=== PATIENT | female | born 1935 | race Caucasian/White ===

== ENCOUNTER 2016-08-07 16:33 | Inpatient (IN) | payer MEDICARE, BC ==
[~2016-08-07] VITALS: Ht 162.6 cm; Wt 78.0 kg
[~2016-08-07 16:33] MED LIST: CALC500T42 PO; CRAN500C2 PO; OXYC1SOL5 PO; RIVA10 PO; VITA200017 PO; Z.0.CPM; ZINC100T2 PO
[2016-08-07 17:21] VITALS: BP 111/73; PULSE 132; RESP 18; TEMP 99.9; O2SAT 94
[2016-08-07] MEDS ORDERED: SODIUM CHLOR 0.9% 1000 ML INJ 1,000 ML IV ONE (17:28)
[2016-08-07] MEDS ORDERED: NAPR375T PO (17:29)
[2016-08-07 18:05] LABS: AUTOMATED NEUTROPHIL # 11.3 TH/MM3 (1.8-7.7); BASOPHIL # 0.1 TH/MM3 (0-0.2); BASOPHIL % 0.4 % (0.0-2.0); HEMATOCRIT 32.4 % (35.0-46.0); HEMO FLAGS DIFF FINAL; LYMPH % 5.3 % (9.0-44.0); LYMPHOCYTE # 0.7 TH/MM3 (1.0-4.8); MEAN CELL VOLUME 80.1 FL (80.0-100.0); MEAN CORPUSCULAR HEMOGLOBIN 26.9 PG (27.0-34.0); MEAN CORPUSCULAR HGB CONC 33.6 % (32.0-36.0); MONO % 12.7 % (0.0-8.0); NEUT % 81.6 % (16.0-70.0); PLATELET COUNT 206 TH/MM3 (150-450); RED BLOOD COUNT 4.04 MIL/MM3 (4.00-5.30); RED CELL DISTRIBUTION WIDTH 15.5 % (11.6-17.2); WHITE BLOOD COUNT 13.9 TH/MM3 (4.0-11.0)
[2016-08-07 18:08] LABS: BACTERIA, URINE OCC /hpf; BLOOD, URINE SMALL (NEG); GLUCOSE,URINE NEG (NEG); KETONE, URINE 10 mg/dL (NEG); MUCUS URINE FEW /lpf (OCC); NITRITE,URINE NEG (NEG); SQUAMOUS EPITHELIAL CELL URINE 2 /hpf (0-5); URINE COLOR YELLOW (YELLW/STRAW)
[2016-08-07 18:09] LABS: COMMENT (UR) CATH-CULTURE IND; CULTURE IF INDICATED CATH CULTURE IND
[2016-08-07] MEDS: AZTREONAM INJ 1,000 MG in SODIUM CHLORIDE 0.9% INJ 100 ML IV STA ×2 (18:23→22:18)
[2016-08-07] MEDS ORDERED: GENTAMICIN IV STA (18:23)
[2016-08-07] MEDS ORDERED: SODIUM CHLORIDE 0.9% IV STA (18:23)
[2016-08-07 18:24] VITALS: O2SAT 98
--- NOTE | 2016-08-07 18:25 | RADRPT ---
EXAM DATE/TIME: 08/07/2016 17:50 [facility] COMPARISON: No previous studies available for comparison. INDICATIONS : Abnormal heart rate, shortness of breath and congestion. MEDICAL HISTORY : Carcinoma, breast. SURGICAL HISTORY : Mastectomy, left. ENCOUNTER: Initial ACUITY: 4 - 6 days PAIN SCORE: 0/10 LOCATION: Bilateral chest FINDINGS: A single view of the chest demonstrates the lungs to be symmetrically aerated without evidence of mas s, infiltrate or effusion. The cardiomediastinal contours are unremarkable. Osseous structures are intact. CONCLUSION: No evidence of acute cardiopulmonary disease. Marcelo Jung MD on August 07, 2016 at 18:23 Board Certified Radiologist. This report was verified electronically.
[2016-08-07 18:29] LABS: ALT (GPT) 34 U/L (10-53); ANION GAP 8 MEQ/L (5-15); AST (GOT) 32 U/L (15-37); BICARBONATE 26.9 MEQ/L (21.0-32.0); BLOOD UREA NITROGEN 15 MG/DL (7-18); CHLORIDE 103 MEQ/L (98-107); GLOMERULAR FILTRATION RATE 76 ML/MIN (>89); POTASSIUM 3.3 MEQ/L (3.5-5.1); SODIUM (NA) 138 MEQ/L (136-145)
[2016-08-07 18:33] LABS: ALKALINE PHOSPHATASE 154 U/L (45-117); APTT (PATIENT) 30.5 SEC (24.3-30.1); PROTHROMBIN TIME - PATIENT 10.7 SEC (9.8-11.6); TOTAL BILIRUBIN ADULT 0.9 MG/DL (0.2-1.0)
[2016-08-07 18:41] LABS: CREATINE KINASE 50 U/L (26-192)
--- NOTE | 2016-08-07 19:01 | PD ---
HPI Chief Complaint: GI Complaint Time Seen by Provider: 17:29 Travel History International Travel<30 days: No Contact w/Intl Traveler<30days: No Traveled to known affect area: No History of Present Illness HPI 81-year-old female presents with chills, vomiting, abdominal pain that she presented to an urgent care with. There her chest x-ray showed pneumomediastinum per documentation and she had sinus tachycardia in the 120s. She presents by ambulance from the urgent care. She states she has been having these symptoms over the past couple of days. She denies other concurrent complaints other than nasal congestion. She denies specific sick contacts. She states she feels worse when she moves around. Her is at bedside and help supplement history. She denies other modifying factors. PFSH Past Medical History Anxiety: No Depression: No Cancer: Yes (LEFT BREAST ) Cardiovascular Problems: No Endocrine: No Genitourinary: No Hepatitis: No Hiatal Hernia: No Immune Disorder: No Musculoskeletal: Yes (ARTHRITIS) Neurologic: No Psychiatric: No Reproductive: No Respiratory: No Tetanus Vaccination: > 5 Years Past Surgical History Abdominal Surgery: Yes (APPY) AICD: No Arteriovenous Shunt: No Body Medical Devices: TITANIUM MARY RIGHT LEG Endocrine Surgery: No Eye Surgery: Yes (WILEY CATARACT REMOVAL) Gynecologic Surgery: Yes (PARTIAL HYSTERECTOMY) Insulin Pump: No Joint Replacement: Yes (RGHT FEMOR TITANIUM) Oral Surgery: Yes (TONSILLECTOMY) Pacemaker: No Thoracic Surgery: Yes (LEFT MASTECTOMY) Social History Alcohol Use: No Tobacco Use: No Substance Use: No Allergies-Medications (Allergen,Severity, Reaction): Coded Allergies: Amoxicillin (Verified Allergy, Severe, Nausea/Vomiting, 08/07/16) Reported Meds & Prescriptions Reported Meds & Active Scripts Active Reported Naproxen 375 Mg Tab 375 Mg PO BID PRN Review of Systems Except as stated in HPI: all other systems reviewed are Neg Physical Exam Narrative GENERAL: Well-nourished, well-developed patient. SKIN: Warm and dry. HEAD: Normocephalic and atraumatic. EYES: No injection or drainage. ENT: No nasal drainage noted. NECK: Supple, trachea midline. CARDIOVASCULAR: Tachycardic rate and regular rhythm RESPIRATORY: Breath sounds equal bilaterally at apices. No accessory muscle use. GASTROINTESTINAL: Abdomen soft, diffusely tender, mild distention without rebound or guarding NEUROLOGICAL: Awake and alert. Moves all extremities. Normal speech. Data Data Last Documented VS Orders Electrocardiogram (08/07/16:28) Complete Blood Count With Diff (08/07/16:) Comprehensive Metabolic Panel (08/07/16) Prothrombin Time / Inr (Pt) (08/07/16) Act Partial Throm Time (Ptt) (08/07/16:) Lactic Acid Sepsis Protocol (08/07/16:) Magnesium (Mg) (08/07/16) Phosphorus (Po4) (08/07/16) Ckmb (Isoenzyme) Profile (08/07/16) Troponin I (08/07/16) Urinalysis - C+S If Indicated (08/07/16) Blood Culture (08/07/16) Chest, Single Ap (08/07/16:) Ecg Monitoring (08/07/16:) Iv Access Insert/Monitor (08/07/16:) Oximetry (08/07/16:) Sodium Chlor 0.9% 1000 Ml Inj (Ns 1000 M (08/07/16 17:28) Influenzae A/B Antigen (08/07/16 17:52) Ct Abd/Pel W Iv Contrast(Rout) (08/07/16 ) Ct Thorax/ Chest W Iv Contrast (08/07/16 17:56) Urine Culture (08/07/16 17:43) Aztreonam Inj (Azactam Inj) (08/07/16 18:23) Gentamicin Inj (Gentamicin Inj) (08/07/16 18:23) Electrocardiogram (08/07/16 ) Sodium Chlor 0.9% 1000 Ml Inj (Ns 1000 M (08/07/16 19:30) Iohexol 350 Inj (Omnipaque 350 Inj) (08/07/16 19:31) Diltiazem Inj (Cardizem Inj) (08/07/16 21:00) Acetaminophen (Tylenol) (08/07/16 21:15) Ondansetron Inj (Zofran Inj) (08/07/16 21:30) Acetaminophen Supp (Tylenol Supp) (08/07/16 21:30) Diltiazem Inj (Cardizem Inj) (08/07/16 21:45) Vital Signs (Adult) Q15MX4,Q4H (08/07/16 21:37) Fisher Scallop / Telemetry MO.Q8H (08/07/16 21:37) Cardiac Rhythm MO.Q8H (08/07/16 21:37) ^ Notify Dr: Other (08/07/16 21:37) Diltiazem Inj (Cardizem Inj) (08/07/16 21:45) Potassium Phosphate Inj (Potassium Phosp (08/08/16 00:15) Potassium Chlor 20 Meq Premix (Kcl 20 Me (08/08/16 00:15) Lactated Ringer's 1000 Ml Inj (Lr 1000 M (08/08/16 00:15) Admit Order (Ed Use Only) (08/08/16 00:13) Labs MDM Medical Decision Making Medical Screen Exam Complete: Yes Emergency Medical Condition: Yes Medical Record Reviewed: Yes (past history confirmed, urgent care note reviewed ) Interpretation(s) EKG #1 shows likely sinus tachycardia at 150 with underlying artifact without STEMI criteria so Will repeat EKG #2 after no medications were given shows NSR, no ST elevation or depression , and no arrhythmias. No significant T-wave inversions. CBC & BMP Diagram 08/07/16 17:48 Last 24 hours Impressions Chest X-Ray 08/07/16 1728 Signed Impressions: Service Date/Time: Sunday, August 07, 2016 17:50 - CONCLUSION: No evidence of acute cardiopulmonary disease. Marcelo Jung MD Differential Diagnosis Sepsis, SVT, a flutter with RVR, diverticulitis, UTI, appendicitis, barotrauma.... Narrative Course Will check blood work, urinalysis, chest x-ray, CT chest (report of pneumomediastinum by urgent care) and abdomen (check for source of sepsis and UTI possible stone versus pyelonephritis versus abscess) and dose of IV fluids and reevaluate Given penicillin allergy will dose with aztreonam and gentamicin to cover for urinary tract infection in setting of sepsis and continue ivf Critical Care Narrative Aggregate critical care time was 30 minutes. Time to perform other separately billable procedures was not included in the critical care time. My time did not include minutes spent treating any other patients simultaneously or on activities that did not directly contribute to the patient's treatment. The services I provided to this patient were to treat and/or prevent clinically significant deterioration that could result in: Septic shock I provided critical care services requiring my management, as noted below: Chart data review, documentation time, medication orders and management, vital sign assessments/reviewing monitor data, ordering and reviewing lab tests, ordering and interpreting/reviewing x-rays and diagnostic studies, care of the patient and discussion of the patient with the admitting physicians. Sepsis Criteria SIRS Criteria (2 or more): Heart rate over 90, WBC > 36972, < 4000 or > 10% bands Sepsis Criteria (SIRS+source): Infect source susp/known Physician Communication Physician Communication dr laughlin to follow cts and admit Diagnosis Primary Impression: Sepsis Qualified Code: A41.9 - Sepsis, due to unspecified organism Additional Impressions: Leukocytosis Qualified Code: D72.825 - Bandemia Narrow complex tachycardia Normocytic anemia Hypokalemia Admitting Information Admitting Physician Requests: Admit Scripts Ferrous Sulfate 325 Mg Ssn045 Mg PO BID #60 TAB Prov:Christian Tobin DO 08/13/16 Diltiazem CD 24 HR 240 Mg Pazeh768 Mg PO DAILY #30 CAP Ref 0 Prov:Christian Tobin DO 08/13/16 Ciprofloxacin (Cipro)500 Mg Avp241 Mg PO Q12HR #20 TAB Prov:Christian Tobin DO 08/13/[address] (Aspirin EC)81 Mg Tabdr81 Mg PO DAILY #30 TAB Ref 0 Prov:Christian Tobin DO 08/13/16 Oxygen tank 1 Ea Tank #2 Liter Jevon.canula Continuous Oxygen Concentrator Portable Gaseous 2 L/min via Nasal Cannula Continuous For 99 months Prov:Christian Tobin DO 08/13/16 Lisa Martinez MD Aug 07, 2016 19:01 Thromboplast Time Sodium Level 138 MEQ/L Potassium Level 3.3 MEQ/L Chloride Level 103 MEQ/L Carbon Dioxide Level 26.9 MEQ/L Anion Gap 8 MEQ/L Blood Urea Nitrogen 15 MG/DL Creatinine 0.74 MG/DL Estimat Glomerular Filtration 76 ML/MIN Rate Random Glucose 97 MG/DL Lactic Acid Level 1.2 mmol/L Calcium Level 8.5 MG/DL Phosphorus Level 2.0 MG/DL Magnesium Level 2.0 MG/DL Total Bilirubin 0.9 MG/DL Aspartate Amino Transf 32 U/L (AST/SGOT) Alanine Aminotransferase 34 U/L (ALT/SGPT) Alkaline Phosphatase 154 U/L Total Creatine Kinase 50 U/L Troponin I LESS THAN 0.02 NG/ML Total Protein 6.7 GM/DL Albumin 2.8 GM/DL MDM Medical Decision Making Medical Screen Exam Complete: Yes Emergency Medical Condition: Yes Medical Record Reviewed: Yes (past history confirmed, urgent care note reviewed ) Interpretation(s) EKG #1 shows likely sinus tachycardia at 150 with underlying artifact without STEMI criteria so Will repeat EKG #2 after no medications were given shows NSR, no ST elevation or depression , and no arrhythmias. No significant T-wave inversions. CBC & BMP Diagram 08/07/16 17:48 Last 24 hours Impressions Chest X-Ray 08/07/16 1728 Signed Impressions: Service Date/Time: Sunday, August 07, 2016 17:50 - CONCLUSION: No evidence of acute cardiopulmonary disease. Marcelo Jung MD Differential Diagnosis Sepsis, SVT, a flutter with RVR, diverticulitis, UTI, appendicitis, barotrauma.... Narrative Course Will check blood work, urinalysis, chest x-ray, CT chest and abdomen and dose of IV fluids and reevaluate Given penicillin allergy will dose with history and a.m. and gentamicin to cover for urinary tract infection in setting of sepsis Sepsis Criteria SIRS Criteria (2 or more): Heart rate over 90, WBC > 22631, < 4000 or > 10% bands Sepsis Criteria (SIRS+source): Infect source susp/known Physician Communication Physician Communication dr laughlin to follow cts and admit Admitting Information Admitting Physician Requests: Admit Lisa Martinez MD Aug 07, 2016 19:01
[2016-08-07] MEDS ORDERED: SODIUM CHLOR 0.9% 1000 ML INJ 1,000 ML IV SCH (19:30)
[2016-08-07] MEDS ORDERED: IOHEXOL 350 MG/ML 10 ML VIAL (for RAD DIAG) IV ONE (19:31)
--- NOTE | 2016-08-07 19:55 | RADRPT ---
EXAM DATE/TIME: 08/07/2016 19:28 [facility] COMPARISON: No previous studies available for comparison. INDICATIONS : Weakness and dark urine for three days. IV CONTRAST: 100 cc Omnipaque 350 (iohexol) IV ; Cumulative dose for multiple exams. ORAL CONTRAST: No oral contrast ingested. RADIATION DOSE: 15.13 CTDIvol (mGy) ; Combined studies - Thorax/Abdomen/Pelvis MEDICAL HISTORY : Carcinoma, breast. SURGICAL HISTORY : Mastectomy, left. Appendectomy.Hysterectomy.hip ORIF ENCOUNTER: Initial ACUITY: 3 days PAIN SCALE: 5/10 LOCATION: abdomen TECHNIQUE: Volumetric scanning of the abdomen and pelvis was performed. Using automated exposure control and ad justment of the mA and/or kV according to patient size, radiation dose was kept as low as reasonably achievable to obtain optimal diagnostic quality images. FINDINGS: LOWER LUNGS: The visualized lower lungs are clear. LIVER: Homogeneous density without lesion. There is no dilation of the biliary tree. 3 cm stone in the gall bladder. No inflammatory changes. No duct stone or ductal dilatation. SPLEEN: Normal size without lesion. PANCREAS: Within normal limits. KIDNEYS: Heterogeneous and decreased nephrogram on the right relative to the left. There is also mild right pe rinephric edema. I don't see hydronephrosis, hydroureter or definite stone. ADRENAL GLANDS: Within normal limits. VASCULAR: There is no aortic aneurysm. BOWEL/MESENTERY: The stomach, small bowel, and colon demonstrate no acute abnormality. There is no free intraperitone al air or fluid. ABDOMINAL WALL: Within normal limits. RETROPERITONEUM: There is no lymphadenopathy. BLADDER: No wall thickening or mass. REPRODUCTIVE: Previous hysterectomy. INGUINAL: There is no lymphadenopathy or hernia. MUSCULOSKELETAL: No acute bony abnormality demonstrated. CONCLUSION: 1. Heterogeneous nephrogram and perinephric edema on the right without stone or convincing evidence o f obstructive uropathy. Right pyelonephritis is suspected. 2. Large stone in an otherwise normal-appearing gallbladder. Mareclo Jung MD on August 07, 2016 at 19:50 Board Certified Radiologist. This report was verified electronically.
--- NOTE | 2016-08-07 20:01 | RADRPT ---
EXAM DATE/TIME: 08/07/2016 19:28 [facility] COMPARISON: No previous studies available for comparison. INDICATIONS : Weakness and dark urine for three days. IV CONTRAST: 100 cc Omnipaque 350 (iohexol) IV ; Cumulative dose for multiple exams. RADIATION DOSE: 15.31 CTDIvol (mGy) ; Combined studies - Thorax/Abdomen/Pelvis MEDICAL HISTORY : Carcinoma, breast. SURGICAL HISTORY : Mastectomy, left. Appendectomy.Hysterectomy.Hip ORIF. ENCOUNTER: Initial ACUITY: 3 days PAIN SCALE: 4/10 LOCATION: chest TECHNIQUE: Volumetric scanning of the chest was performed. Using automated exposure control and adjustment of t he mA and/or kV according to patient size, radiation dose was kept as low as reasonably achievable to obtain optimal diagnostic quality images. FINDINGS: No infiltrate, effusion or pneumothorax. Heart size normal. Coronary artery calcification, most consp icuous at the left anterior descending. A 12 mm AP window mediastinal lymph node is seen. CONCLUSION: No acute process. Marcelo Jung MD on August 07, 2016 at 19:57 Board Certified Radiologist. This report was verified electronically.
[2016-08-07 20:55] VITALS: PULSE 185; RESP 24; O2SAT 96
[2016-08-07] MEDS ORDERED: DILTIAZEM HCL 25 MG/5 ML VIAL IV ONE ×2 (21:00→21:45)
[2016-08-07 21:05] VITALS: BP 155/90; PULSE 120; RESP 24; TEMP 102.1; O2SAT 100
[2016-08-07] MEDS ORDERED: ACETAMINOPHEN 500 MG CPLT PO ONE (21:15)
[2016-08-07] MEDS ORDERED: ACETAMINOPHEN 650 MG SUPP RECTAL ONE (21:30)
[2016-08-07] MEDS ORDERED: ONDANSETRON HCL 4 MG/2 ML VIAL IV ONE (21:30)
[2016-08-07] MEDS ORDERED: DILTIAZEM INJ 125 MG in SODIUM CHLORIDE 0.9% INJ 100 ML IV SCH (21:45)
[2016-08-07 22:02] VITALS: BP 133/60; PULSE 138; RESP 26; O2SAT 99
[2016-08-07 23:00] VITALS: BP 96/50; PULSE 124; RESP 22; O2SAT 94
[2016-08-08] VITALS (15 sets, daily range): BP systolic 80–158; BP diastolic 47–80; PULSE 70–106; RESP 18–30; TEMP 98.4–100.3; O2SAT 94–99
[2016-08-08] MEDS ORDERED: POTASSIUM PHOSPHATE INJ 15 MMOL in SODIUM CHLORIDE 0.9% INJ 150 ML IV ONE (00:15)
[2016-08-08] MEDS: POTASSIUM CHLOR 20 MEQ PREMIX 100 ML IV SCH ×2 (00:28→04:06)
[2016-08-08] MEDS: LACTATED RINGER'S 1000 ML INJ 1,000 ML IV SCH ×3 (00:28→16:43)
--- NOTE | 2016-08-08 00:47 | PD ---
Data Data Last Documented VS Vital Signs Date Time Temp Pulse Resp B/P Pulse Ox O2 Delivery O2 Flow Rate FiO2 08/07/16 22:02 138 26 133/60 99 Nasal Cannula 3 08/07/16 21:05 102.1 Orders Electrocardiogram (08/07/16:28) Complete Blood Count With Diff (08/07/16:28) Comprehensive Metabolic Panel (08/07/16:) Prothrombin Time / Inr (Pt) (08/07/16:28) Act Partial Throm Time (Ptt) (08/07/16:28) Lactic Acid Sepsis Protocol (08/07/16:) Magnesium (Mg) (08/07/16:) Phosphorus (Po4) (08/07/16:) Ckmb (Isoenzyme) Profile (08/07/16:) Troponin I (08/07/16) Urinalysis - C+S If Indicated (08/07/16:) Blood Culture (08/07/16:28) Chest, Single Ap (08/07/16:28) Ecg Monitoring (08/07/16:28) Iv Access Insert/Monitor (08/07/16:) Oximetry (08/07/16:28) Sodium Chlor 0.9% 1000 Ml Inj (Ns 1000 M (08/07/16 17:28) Influenzae A/B Antigen (08/07/16 17:52) Ct Abd/Pel W Iv Contrast(Rout) (08/07/16 ) Ct Thorax/ Chest W Iv Contrast (08/07/16 17:56) Urine Culture (08/07/16 17:43) Aztreonam Inj (Azactam Inj) (08/07/16 18:23) Gentamicin Inj (Gentamicin Inj) (08/07/16 18:23) Electrocardiogram (08/07/16 ) Sodium Chlor 0.9% 1000 Ml Inj (Ns 1000 M (08/07/16 19:30) Iohexol 350 Inj (Omnipaque 350 Inj) (08/07/16 19:31) Diltiazem Inj (Cardizem Inj) (08/07/16 21:00) Acetaminophen (Tylenol) (08/07/16 21:15) Ondansetron Inj (Zofran Inj) (08/07/16 21:30) Acetaminophen Supp (Tylenol Supp) (08/07/16 21:30) Diltiazem Inj (Cardizem Inj) (08/07/16 21:45) Vital Signs (Adult) Q15MX4,Q4H (08/07/16 21:37) Airborne Operations Superintendent / Telemetry MO.Q8H (08/07/16 21:37) Cardiac Rhythm MO.Q8H (08/07/16 21:37) ^ Notify Dr: Other (08/07/16 21:37) Diltiazem Inj (Cardizem Inj) (08/07/16 21:45) Potassium Phosphate Inj (Potassium Phosp (08/08/16 00:15) Potassium Chlor 20 Meq Premix (Kcl 20 Me (08/08/16 00:15) Lactated Ringer's 1000 Ml Inj (Lr 1000 M (08/08/16 00:15) Admit Order (Ed Use Only) (08/08/16 00:13) Labs Laboratory Tests Test 08/07/16 08/07/16 17:43 17:48 Urine Color YELLOW Urine Turbidity HAZY Urine pH 6.0 Urine Specific Tyler 1.013 Urine Protein 100 mg/dL Urine Glucose (UA) NEG mg/dL Urine Ketones 10 mg/dL Urine Occult Blood SMALL Urine Nitrite NEG Urine Bilirubin NEG Urine Urobilinogen LESS THAN 2.0 MG/DL Urine Leukocyte Esterase LARGE Urine RBC 8 /hpf Urine WBC 97 /hpf Urine WBC Clumps FEW Urine Squamous Epithelial 2 /hpf Cells Urine Bacteria OCC /hpf Urine Mucus FEW /lpf Microscopic Urinalysis Comment CATH-CULTURE IND White Blood Count 13.9 TH/MM3 Red Blood Count 4.04 MIL/MM3 Hemoglobin 10.9 GM/DL Hematocrit 32.4 % Mean Corpuscular Volume 80.1 FL Mean Corpuscular Hemoglobin 26.9 PG Mean Corpuscular Hemoglobin 33.6 % Concent Red Cell Distribution Width 15.5 % Platelet Count 206 TH/MM3 Mean Platelet Volume 8.6 FL Neutrophils (%) (Auto) 81.6 % Lymphocytes (%) (Auto) 5.3 % Monocytes (%) (Auto) 12.7 % Eosinophils (%) (Auto) 0.0 % Basophils (%) (Auto) 0.4 % Neutrophils # (Auto) 11.3 TH/MM3 Lymphocytes # (Auto) 0.7 TH/MM3 Monocytes # (Auto) 1.8 TH/MM3 Eosinophils # (Auto) 0.0 TH/MM3 Basophils # (Auto) 0.1 TH/MM3 CBC Comment DIFF FINAL Differential Comment Prothrombin Time 10.7 SEC Prothromb Time International 1.0 RATIO Ratio Activated Partial 30.5 SEC Thromboplast Time Sodium Level 138 MEQ/L Potassium Level 3.3 MEQ/L Chloride Level 103 MEQ/L Carbon Dioxide Level 26.9 MEQ/L Anion Gap 8 MEQ/L Blood Urea Nitrogen 15 MG/DL Creatinine 0.74 MG/DL Estimat Glomerular Filtration 76 ML/MIN Rate Random Glucose 97 MG/DL Lactic Acid Level 1.2 mmol/L Calcium Level 8.5 MG/DL Phosphorus Level 2.0 MG/DL Magnesium Level 2.0 MG/DL Total Bilirubin 0.9 MG/DL Aspartate Amino Transf 32 U/L (AST/SGOT) Alanine Aminotransferase 34 U/L (ALT/SGPT) Alkaline Phosphatase 154 U/L Total Creatine Kinase 50 U/L Troponin I LESS THAN 0.02 NG/ML Total Protein 6.7 GM/DL Albumin 2.8 GM/DL [facility] Supervised Visit with KAROLYN: No Narrative Course I took over care of this patient from Dr. Martinez. The patient presents today with pyelonephritis than a septic. She also is in a narrow complex tachycardia. She was given 15 mg of diltiazem and then a 20 mg bolus. She was started on a drip. She was also given 2 L of IV hydration and broad-spectrum antibiotics. Given her blood pressure is on the low side and her heart rate continues to be in the 120 to 130 range patient was admitted to the intensive care unit for close monitoring. Critical Care Narrative Aggregate critical care time was 40 minutes. Time to perform other separately billable procedures was not included in the critical care time. My time did not include minutes spent treating any other patients simultaneously or on activities that did not directly contribute to the patient's treatment. The services I provided to this patient were to treat and/or prevent clinically significant deterioration that could result in: Disability, I provided critical care services requiring my management, as noted below: Chart data review, documentation time, medication orders and management, vital sign assessments/reviewing monitor data, ordering and reviewing lab tests, ordering and interpreting/reviewing x-rays and diagnostic studies, care of the patient and discussion of the patient with the admitting physicians. Diagnosis Primary Impression: Pyelonephritis Additional Impression: Narrow complex tachycardia Admitting Information Admitting Physician Requests: Admit Ava Kirkpatrick MD Aug 08, 2016 00:47
--- NOTE | 2016-08-08 05:41 | HHI.HP ---
[facility] Service Critical Care Medicine Primary Care Physician Ashley Burrell M.D. Admission Diagnosis pyelonephritis, svt Diagnosis: (1) Osteoarthritis of right knee Diagnosis: Principal (2) Pyelonephritis Diagnosis: Principal (3) Narrow complex tachycardia Diagnosis: Principal (4) Emphysematous pyelonephritis of right kidney Diagnosis: Principal (5) Hypokalemia Diagnosis: Principal (6) Hypophosphatemia Diagnosis: Principal (7) Leukocytosis Diagnosis: Principal (8) Normocytic anemia Diagnosis: Principal (9) SIRS (systemic inflammatory response syndrome) Diagnosis: Principal Chief Complaint: Nausea and vomiting Travel History International Travel<30 Days: No Contact w/Intl Traveler <30 Da: No Traveled to Known Affected Are: No Sepsis Criteria SIRS Criteria (2 or more): Heart rate over 90, RR > 20 or PaCO2 < 32, WBC > 41560, < 4000 or > 10% bands Sepsis Criteria (SIRS+source): Infect source susp/known Criteria Outcome: Meets SIRS criteria History of Present Illness 81-year-old female. Date of admission 08/07/2016. Past medical includes osteoarthritis. She recently has had surgery on right leg has had frequent urinary tract infections interim. She states she took Monistat" for this". She presents to [facility] with chills, vomiting, abdominal pain after being seen in urgent care. His last several days prior to admission.. At that facility. obstensively her chest x-ray showed pneumomediastinum per documentation and she had sinus tachycardia in the 120s. At this facility, CT chest and chest x-ray did not show pneumomediastinum here. She received 2 L normal saline for hypotension and urosepsis or urinary tract infections or pyelonephritis and received 35 mg total Cardizem's and started on a Cardizem drip at 2.5 mg an hour. And received potassium phosphorus supplementation.. Cisterna foot 5 AM. She is currently seen hemodynamically stable in ED. lactate was 1.2. CT abdomen pelvis revealed right pyelonephritis and cholelithiasis. Review of Systems Constitutional: COMPLAINS OF: Fatigue, Fever, DENIES: Weight gain, Weight loss Endocrine: DENIES: Polydipsia, Polyuria Eyes: DENIES: Blurred vision, Double Vision Ears, nose, mouth, throat: DENIES: Hearing loss Respiratory: DENIES: Cough Cardiovascular: DENIES: Chest pain, Orthopnea, Claudication Gastrointestinal: COMPLAINS OF: Abdominal pain, Nausea, Vomiting, DENIES: Black stools Genitourinary: COMPLAINS OF: Urinary frequency, Urinary incontinence, Urgency, DENIES: Hematuria Musculoskeletal: COMPLAINS OF: Joint pain Integumentary: DENIES: Rash Hematologic/lymphatic: DENIES: Lymphadenopathy Neurologic: DENIES: Abnormal gait Psychiatric: COMPLAINS OF: Anxiety, DENIES: Confusion Past Family Social History Allergies: Coded Allergies: Amoxicillin (Verified Allergy, Severe, Nausea/Vomiting, 08/07/16) Past Medical History Osteoarthritis Past Surgical History Bilateral cataract T&A Left meniscectomy Hysterectomy Right femur Reported Medications Naprosyn as needed Active Ordered Medications Reviewed in EMR Family History Mother and father is noncontributory Social History No severe tobacco alcohol or IV drug use Physical Exam Vital Signs Vital Signs Date Time Temp Pulse Resp B/P Pulse Ox O2 Delivery O2 Flow Rate FiO2 08/08/16 05:33 70 23 95/50 98 Nasal Cannula 2 08/08/16 04:00 72 18 80/47 97 Nasal Cannula 2 08/08/16 03:00 74 19 85/52 94 Nasal Cannula 2 08/08/16 02:49 77 22 86/51 94 Nasal Cannula 3 08/08/16 00:44 100.3 08/08/16 00:29 90 20 90/53 94 Nasal Cannula 2 08/07/16 23:00 124 22 96/50 94 08/07/16 22:02 138 26 133/60 99 Nasal Cannula 3 08/07/16 21:05 102.1 120 24 155/90 100 Nasal Cannula 2 08/07/16 20:55 185 24 96 Nasal Cannula 2 08/07/16 18:24 98 08/07/16 17:21 99.9 132 18 111/73 94 Physical Exam GENERAL: 81-year-old female, resting in bed in no acute distress SKIN: Warm and dry. No rash. Well-perfused HEAD: Atraumatic. Normocephalic. EYES: Pupils equal and round. No scleral icterus. No injection or drainage. ENT: No nasal bleeding or discharge. Mucous membranes pink and moist. NECK: Trachea midline. No JVD. CARDIOVASCULAR: Regular rate and rhythm. S1, S2. No S4. Without murmur RESPIRATORY: No accessory muscle use. Clear to auscultation. Breath sounds equal bilaterally. GASTROINTESTINAL: Abdomen soft, tender to deep palpation right flank., nondistended. Hypoactive bowel sounds appreciated MUSCULOSKELETAL: Extremities without significant peripheral edema. No obvious deformities. NEUROLOGICAL: Awake and alert. No obvious cranial nerve deficits. Motor grossly within normal limits. Five out of 5 muscle strength in the arms and legs. Normal speech. PSYCHIATRIC: Appropriate mood and affect; insight and judgment normal. Laboratory Laboratory Tests Test 08/07/16 08/07/16 17:43 17:48 Urine Color YELLOW Urine Turbidity HAZY Urine pH 6.0 Urine Specific [place] 1.013 Urine Protein 100 Urine Glucose (UA) NEG Urine Ketones 10 Urine Occult Blood SMALL Urine Nitrite NEG Urine Bilirubin NEG Urine Urobilinogen LESS THAN 2.0 Urine Leukocyte Esterase LARGE Urine RBC 8 Urine WBC 97 Urine WBC Clumps FEW Urine Squamous Epithelial 2 Cells Urine Bacteria OCC Urine Mucus FEW Microscopic Urinalysis Comment CATH-CULTURE IND White Blood Count 13.9 Red Blood Count 4.04 Hemoglobin 10.9 Hematocrit 32.4 Mean Corpuscular Volume 80.1 Mean Corpuscular Hemoglobin 26.9 Mean Corpuscular Hemoglobin 33.6 Concent Red Cell Distribution Width 15.5 Platelet Count 206 Mean Platelet Volume 8.6 Neutrophils (%) (Auto) 81.6 Lymphocytes (%) (Auto) 5.3 Monocytes (%) (Auto) 12.7 Eosinophils (%) (Auto) 0.0 Basophils (%) (Auto) 0.4 Neutrophils # (Auto) 11.3 Lymphocytes # (Auto) 0.7 Monocytes # (Auto) 1.8 Eosinophils # (Auto) 0.0 Basophils # (Auto) 0.1 CBC Comment DIFF FINAL Differential Comment Prothrombin Time 10.7 Prothromb Time International 1.0 Ratio Activated Partial 30.5 Thromboplast Time Sodium Level 138 Potassium Level 3.3 Chloride Level 103 Carbon Dioxide Level 26.9 Anion Gap 8 Blood Urea Nitrogen 15 Creatinine 0.74 Estimat Glomerular Filtration 76 Rate Random Glucose 97 Lactic Acid Level 1.2 Calcium Level 8.5 Phosphorus Level 2.0 Magnesium Level 2.0 Total Bilirubin 0.9 Aspartate Amino Transf 32 (AST/SGOT) Alanine Aminotransferase 34 (ALT/SGPT) Alkaline Phosphatase 154 Total Creatine Kinase 50 Troponin I LESS THAN 0.02 Total Protein 6.7 Albumin 2.8 Date/Time Procedure Status Source Growth 08/07/16 18:05 Influenza Types A,B Antigen ([place]) - Final Complete Nasal Aspirate NEGATIVE FOR FLU A AND B ANTIGEN.... 08/07/16 17:48 Aerobic Blood Culture Received Blood Peripheral Pending 08/07/16 17:48 Anaerobic Blood Culture Received Blood Peripheral Pending 08/07/16 17:43 Urine Culture Received Urine Clean Catch Pending Result Diagram: 08/07/16 1748 08/07/16 1748 Imaging Last Impressions Chest CT 08/07/16 1756 Signed Impressions: Service Date/Time: Sunday, August 07, 2016 19:28 - CONCLUSION: No acute process. Marcelo Jung MD Chest X-Ray 08/07/16 1728 Signed Impressions: Service Date/Time: Sunday, August 07, 2016 17:50 - CONCLUSION: No evidence of acute cardiopulmonary disease. Marcelo Jung MD Abdomen/Pelvis CT 08/07/16 0000 Signed Impressions: Service Date/Time: Sunday, August 07, 2016 19:28 - CONCLUSION: 1. Heterogeneous nephrogram and perinephric edema on the right without stone or convincing evidence of obstructive uropathy. Right pyelonephritis is suspected. 2. Large stone in an otherwise normal-appearing gallbladder. Marcelo Jung MD Assessment and Plan Assessment and Plan Neuro/Psych: Acetaminophen for fever Dodson/morphine as needed for pain management CV: Narrow complex tachycardiac currently normal sinus rhythm Likely electrolyte induced. Currently off diltiazem drip started in ED. Keep potassium greater than 4, magnesium greater than 2. Troponin within normal limits. Follow up on TSH. 2-D echocardiogram ordered. Resp: There is a question of pneumomediastinum on chest x-ray from outside facility. CT chest revealed no such etiology. Nasal cannula to maintain saturations greater than equal to 92% Incentive spirometry while awake GI: Cholelithiasis Regular diet. Protonix for GI prophylaxis Colace/as needed Senokot for bowel regimen Noted gallbladder did reveal large stone. Asymptomatic on examination. Negative Hoyos sign. : Right pyelonephritis Started on aztreonam/gentamicin 1 dose in ED. Aggressive hydration. Endo: Sliding-scale insulin if needed to maintain euglycemia. Renal: Currently normal saline with 20 mEq KCl at 100 cc an hour Accurate I's and O's Heme: Leukocytosis Normocytic anemia Monitor CBC/CMP daily. ID: Pyelonephritis Patient is allergic to amoxicillin. Causes nausea. Aztreonam day #2. 1 dose gentamicin ED. Urine culture/blood cultures 22/03 pending Influenza negative FEN: Hypokalemia Hypophosphatemia Replace in ED. Recheck this AM. MSK: Osteoarthritis PT evaluate and treat Access - Utilize peripheral IV. Central line if indicated Prophylaxis - GI - Protonix - DVT - SCD/Lovenox Level III consult. Assign care to hospitalist in a.m. 08/09. Code Status Full code Discussed Condition With Dr. Kaya jiménez ED physician and patient. Care plan discussed all questions answered. Problem Qualifiers (1) Osteoarthritis of right knee: Qualified Code: M17.11 - Osteoarthritis of right knee, unspecified osteoarthritis type (2) Leukocytosis: Qualified Code: D72.825 - Bandemia Andre Leal MD Aug 08, 2016 05:41
[2016-08-08] MEDS ORDERED: CHLORHEXIDINE GLUCONATE 2 % 1 PACK (2 CLOTHS) TOP PRN (06:15)
[2016-08-08] MEDS ORDERED: MISCELLANEOUS NURSING INFORMATION XX SCH (06:15)
[2016-08-08] MEDS ORDERED: SODIUM CHLORIDE 0.9% FLUSH 5 ML FLUSH IV FLUSH PRN (06:15)
[2016-08-08] MEDS ORDERED: MORPHINE SULFATE 4 MG/ML INJ IV PRN (06:15)
[2016-08-08] MEDS ORDERED: Vancomycin Consult Pharmacy 1 EA XX SCH (06:15)
[2016-08-08] MEDS ORDERED: ACETAMINOPHEN/HYDROcodone 325 MG/5 MG TAB PO PRN (06:15)
[2016-08-08] MEDS ORDERED: SENNOSIDES 8.6 MG TAB PO PRN (06:15)
[2016-08-08] MEDS ORDERED: ONDANSETRON HCL 4 MG/2 ML VIAL IV PRN (06:15)
[2016-08-08 06:29] LABS: HEMATOCRIT 27.6 % (35.0-46.0); MEAN CELL VOLUME 79.9 FL (80.0-100.0); MEAN CORPUSCULAR HEMOGLOBIN 27.2 PG (27.0-34.0); MEAN CORPUSCULAR HGB CONC 34.1 % (32.0-36.0); PLATELET COUNT 181 TH/MM3 (150-450); RED BLOOD COUNT 3.46 MIL/MM3 (4.00-5.30); RED CELL DISTRIBUTION WIDTH 15.4 % (11.6-17.2); WHITE BLOOD COUNT 10.7 TH/MM3 (4.0-11.0)
[2016-08-08] MEDS ORDERED: SODIUM CHLOR 0.9% 1000 ML INJ 1,000 ML IV ONE (06:30)
[2016-08-08 06:46] LABS: HEMO FLAGS AUTO DIFF
[2016-08-08] MEDS ORDERED: VANCOMYCIN 1,500 MG/NS 500 ML IV ONE ×2 (07:00)
[2016-08-08 07:01] LABS: APTT (PATIENT) 34.5 SEC (24.3-30.1); PROTHROMBIN TIME - PATIENT 11.2 SEC (9.8-11.6)
[2016-08-08] MEDS: NS + KCL 20 MEQ INJ 1,000 ML IV SCH ×3 (07:08→20:07)
[2016-08-08 07:13] LABS: ALKALINE PHOSPHATASE 150 U/L (45-117); ALT (GPT) 24 U/L (10-53); ANION GAP 9 MEQ/L (5-15); AST (GOT) 21 U/L (15-37); BICARBONATE 24.5 MEQ/L (21.0-32.0); BLOOD UREA NITROGEN 14 MG/DL (7-18); CHLORIDE 111 MEQ/L (98-107); GLOMERULAR FILTRATION RATE 70 ML/MIN (>89); MAGNESIUM 1.9 MG/DL (1.5-2.5); SODIUM (NA) 144 MEQ/L (136-145); TOTAL BILIRUBIN ADULT 0.6 MG/DL (0.2-1.0)
[2016-08-08 07:18] LABS: BANDS 8 % (0-6); BASOPHILS 1 % (0-2); NEUTROPHIL # MANUAL DIFF 9.2 TH/MM3 (1.8-7.7); PLATELET ESTIMATE SMEAR NORMAL (NORMAL); PLATELET MORPHOLOGY NORMAL (NORMAL); POLYS (SEG NEUTROPHILS) 78 % (16-70); SCAN/DIFF FINAL DIFF MANUAL; WBC DIFF SAMPLE 100
[2016-08-08] MEDS: AZTREONAM INJ 1,000 MG in SODIUM CHLORIDE 0.9% INJ 100 ML IV SCH ×3 (07:32→20:07)
[2016-08-08] MEDS: DOCUSATE SODIUM 100 MG CAP PO SCH ×2 (08:44→20:07)
[2016-08-08] MEDS: PANTOPRAZOLE SOD 40 MG DELAYED RELEASE TAB PO SCH (08:44)
[2016-08-08] MEDS: ENOXAPARIN SODIUM 40 MG/0.4 ML SYRINGE SQ SCH (08:45)
[2016-08-08] MEDS: SODIUM CHLORIDE 0.9% FLUSH 5 ML FLUSH IV FLUSH SCH ×2 (09:00→20:07)
[2016-08-08] MEDS: MAGNESIUM SULFATE 1 GM PREMIX 100 ML IV SCH ×2 (14:15→15:39)
--- NOTE | 2016-08-08 14:27 | EKG ---
Date Performed: 08/07/2016 Time Performed: 18:34:16 PTAGE: 81 years EKG: Supraventricular tachycardia, rate around 150 with general regular rhythm and PACs. This do es not appear to be atrial fibrillation Slight right ventricular conduction disturbance Nonspecific S T change Compared to the previous tracing, SVT is new and the slight ST changes are new Clinical luz elation is recommended ABNORMAL ECG PREVIOUS TRACING : 03/25/2015 09.52 DOCTOR: Andrez Ramsey Interpretating Date/Time 08/08/2016 14:27:03
--- NOTE | 2016-08-08 14:28 | EKG ---
Date Performed: 08/07/2016 Time Performed: 18:49:24 PTAGE: 81 years EKG: Sinus rhythm Compared to prior tracing the SVT has resolved NORMAL ECG PREVIOUS TRACING : 08/07/2016 18.34 DOCTOR: Andrez Ramsey Interpretating Date/Time 08/08/2016 14:27:20
--- NOTE | 2016-08-08 14:28 | EKG ---
Date Performed: 08/07/2016 Time Performed: 22:48:59 PTAGE: 81 years EKG: SINUS TACHYCARDIA Compared to the PREVIOUS TRACING , heart rate is somewhat faster, otherwise no significant change PREVIO US TRACIN08/07/2016 18.49 DOCTOR: Andrez Ramsey Interpretating Date/Time 08/08/2016 14:27:51
[2016-08-08] MEDS: ACETAMINOPHEN 325 MG TAB PO PRN (21:40)
[2016-08-08 22:08] LABS: BICARBONATE 25.6 MEQ/L (21.0-32.0); POTASSIUM 3.9 MEQ/L (3.5-5.1)
[2016-08-09] VITALS (13 sets, daily range): BP systolic 104–135; BP diastolic 55–69; PULSE 80–120; RESP 17–29; TEMP 97.6–98.8; O2SAT 94–100
[2016-08-09 03:50] LABS: AUTOMATED NEUTROPHIL # 5.6 TH/MM3 (1.8-7.7); BASOPHIL # 0.1 TH/MM3 (0-0.2); BASOPHIL % 0.8 % (0.0-2.0); EOSINOPHIL # 0.1 TH/MM3 (0-0.4); EOSINOPHIL % 0.6 % (0.0-4.0); HEMATOCRIT 27.1 % (35.0-46.0); HEMO FLAGS DIFF FINAL; LYMPH % 12.1 % (9.0-44.0); MEAN CELL VOLUME 80.9 FL (80.0-100.0); MEAN CORPUSCULAR HEMOGLOBIN 27.2 PG (27.0-34.0); MEAN CORPUSCULAR HGB CONC 33.7 % (32.0-36.0); MONO % 17.4 % (0.0-8.0); NEUT % 69.1 % (16.0-70.0); PLATELET COUNT 179 TH/MM3 (150-450); RED BLOOD COUNT 3.36 MIL/MM3 (4.00-5.30); RED CELL DISTRIBUTION WIDTH 15.3 % (11.6-17.2); WHITE BLOOD COUNT 8.1 TH/MM3 (4.0-11.0)
[2016-08-09 03:54] LABS: APTT (PATIENT) 32.8 SEC (24.3-30.1); PROTHROMBIN TIME - PATIENT 10.8 SEC (9.8-11.6)
[2016-08-09] MEDS: CHLORHEXIDINE GLUCONATE 2 % 1 PACK (2 CLOTHS) TOP SCH (04:00)
[2016-08-09 04:01] LABS: ALT (GPT) 28 U/L (10-53); ANION GAP 7 MEQ/L (5-15); AST (GOT) 27 U/L (15-37); BICARBONATE 24.6 MEQ/L (21.0-32.0); BLOOD UREA NITROGEN 12 MG/DL (7-18); CHLORIDE 113 MEQ/L (98-107); GLOMERULAR FILTRATION RATE 91 ML/MIN (>89); MAGNESIUM 2.2 MG/DL (1.5-2.5); POTASSIUM 3.8 MEQ/L (3.5-5.1); SODIUM (NA) 145 MEQ/L (136-145)
[2016-08-09 04:03] LABS: ALKALINE PHOSPHATASE 175 U/L (45-117); TOTAL BILIRUBIN ADULT 0.4 MG/DL (0.2-1.0)
[2016-08-09] MEDS: AZTREONAM INJ 1,000 MG in SODIUM CHLORIDE 0.9% INJ 100 ML IV SCH (05:43)
[2016-08-09] MEDS: RESP: ALBUTEROL 2.5 MG/IPRATROPIUM 0.5 MG NEB (PRN) INH ×3 (06:05→20:29)
[2016-08-09] MEDS: ENOXAPARIN SODIUM 40 MG/0.4 ML SYRINGE SQ SCH (08:51)
[2016-08-09] MEDS: PANTOPRAZOLE SOD 40 MG DELAYED RELEASE TAB PO SCH (08:51)
[2016-08-09] MEDS: SODIUM CHLORIDE 0.9% FLUSH 5 ML FLUSH IV FLUSH SCH ×2 (08:52→19:54)
[2016-08-09] MEDS: DOCUSATE SODIUM 100 MG CAP PO SCH ×2 (08:52→19:54)
[2016-08-09] MEDS ORDERED: VANCOMYCIN 1,000 MG/NS 250 ML IV SCH ×2 (09:00)
--- NOTE | 2016-08-09 11:16 | HHI.FPPN ---
Subjective Remarks Patient has been seen and examined this morning. Her vitals are stable and she is afebrile. State she feels short of breath at times and feels her heart flutter. She has insurance but reports not going to the doctor, she states she goes to urgent cares. Reports multiple UTIs over the past few years. (Annalisa Nunez MD R3) Objective Vitals Vital Signs Date Time Temp Pulse Resp B/P Pulse Ox O2 Delivery O2 Flow Rate FiO2 08/09/16 07:00 Nasal Cannula 2.00 08/09/16 06:00 87 08/09/16 04:00 80 08/09/16 04:00 98.8 80 22 116/58 99 08/09/16 02:00 80 08/09/16 01:30 99 Nasal Cannula 3.00 08/09/16 00:00 87 08/09/16 00:00 98.5 87 19 104/59 94 08/08/16 22:00 101 08/08/16 20:00 98.4 104 30 123/59 99 08/08/16 20:00 94 Nasal Cannula 2.00 08/08/16 20:00 106 08/08/16 17:08 78 18 131/60 96 Nasal Cannula 2 08/08/16 15:05 85 18 122/58 97 Nasal Cannula 2 08/08/16 14:18 82 18 158/80 98 Room Air 08/08/16 12:30 72 18 104/65 97 Nasal Cannula 2 I/O 08/08/16 08/08/16 08/08/16 08/09/16 08/09/16 08/09/16 07:00 15:00 23:00 07:00 15:00 23:00 Intake Total 240 ml 465 ml 577 ml Output Total 600 ml 650 ml 500 ml Balance -360 ml -185 ml 77 ml Intake Oral 240 ml 50 ml 100 ml IV Total 415 ml 477 ml Output Urine Total 600 ml 650 ml 500 ml # Voids 1 # Bowel Movements 0 0 (Annalisa Nunez MD R3) Result Diagram: 08/09/1631308/09/16313 Imaging Last Impressions Chest CT 08/07/16 9665 Signed Impressions: Service Date/Time: Sunday, August 07, 2016 19:28 - CONCLUSION: No acute process. Marcelo Jung MD Chest X-Ray 08/07/16 1728 Signed Impressions: Service Date/Time: Sunday, August 07, 2016 17:50 - CONCLUSION: No evidence of acute cardiopulmonary disease. Marcelo Jung MD Abdomen/Pelvis CT 08/07/16 0000 Signed Impressions: Service Date/Time: Sunday, August 07, 2016 19:28 - CONCLUSION: 1. Heterogeneous nephrogram and perinephric edema on the right without stone or convincing evidence of obstructive uropathy. Right pyelonephritis is suspected. 2. Large stone in an otherwise normal-appearing gallbladder. Marcelo Jung MD Objective Remarks GENERAL: well appearing, nad SKIN: Warm and dry. HEAD: Normocephalic. EYES: No scleral icterus. No injection or drainage. NECK: Supple, trachea midline. No JVD or lymphadenopathy. CARDIOVASCULAR: Regular rate and rhythm without murmurs, gallops, or rubs. RESPIRATORY: Breath sounds equal bilaterally. No accessory muscle use. GASTROINTESTINAL: Abdomen soft, non-tender, nondistended. MUSCULOSKELETAL: No cyanosis, or edema. BACK: Nontender without obvious deformity. No CVA tenderness. (Annalisa Nunez MD R3) A/P Assessment and Plan This is an 81-year-old female who recently had surgery on her right leg and has since had a history of recurrent UTIs. She presented to [facility] on 02/2017 after being seen at an urgent care for chills, vomiting, and abdominal pain. At the urgent care the patient had a chest x-ray performed that was concerning for pneumomediastinum and was found to have a heart rate in the 120s. She was then sent to [facility] and was found to to be hemodynamically stable and was diagnosed with pyelonephritis/urosepsis. 1. Sepsis: Pyelonephritis with positive blood cultures (gram-negative juan), she was febrile and tachycardic on admission. Urine culture also showing gram- negative rods. Repeat blood cultures ordered. See abx below. 2. Pyelonephritis: See imaging above. Kidney function wnl. She is status post aztreonam and gentamicin in the ED then gentamycin d/c and vancomycin added. Will stop and place the patient on cefepime 08/09 for gram negative coverage. Urology consulted for her recurrent UTIs. 3. Cholelithiasis: Large stone showed in an overall normal appearing gallbladder noted on imaging. She has a symptomatic. May need lap mack as an outpatient. 4. Osteoporosis: Tylenol prn pain/fever. 5. Narrow complex tachycardia: Likely related to electrolyte abnormalities and dehydration. Heart rate on admission 130s. Placed on Cardizem drip, potassium replated. Heart rate now in the 80s. HR irregular on exam today, ECHO ordered. Tachycardia has resolved, if becomes an issue again during hospitalization may consider cardiology consultation. Fluids: NS @ 100 cc/hr Electrolytes: Currently within normal limits, potassium and mag both replaced Nutrition: Regular diet DVT prophylaxis: SCDs, Lovenox Discharge Planning D/C pending clinical improvement. PT recommends home with home health. (Annalisa Nunez MD R3) Problem List: (1) Osteoarthritis of right knee Status: Acute (2) Sepsis Status: Acute (3) Pyelonephritis Status: Acute (4) Narrow complex tachycardia Status: Acute (Annalisa Nunez MD R3) Problem Qualifiers (1) Osteoarthritis of right knee: Qualified Code: M17.11 - Osteoarthritis of right knee, unspecified osteoarthritis type Annalisa Nunez MD R3 Aug 09, 2016 11:15 Deloris Lazo MD Aug 09, 2016 15:47
[2016-08-09] MEDS ORDERED: SODIUM CHLOR 0.9% 1000 ML INJ 1,000 ML IV SCH ×2 (13:15→15:00)
[2016-08-09] MEDS: CEFEPIME INJ 2,000 MG in SODIUM CHLORIDE 0.9% INJ 100 ML IV SCH (14:45)
[2016-08-09] MEDS: NS + KCL 20 MEQ INJ 1,000 ML IV SCH (14:45)
[2016-08-09] MEDS ORDERED: DILTIAZEM HCL 25 MG/5 ML VIAL IVP ONE (16:45)
[2016-08-09] MEDS: DILTIAZEM INJ 125 MG in SODIUM CHLORIDE 0.9% INJ 100 ML IV SCH (16:57)
[2016-08-09] MEDS: ACETAMINOPHEN 325 MG TAB PO PRN (20:00)
[2016-08-10] VITALS (12 sets, daily range): BP systolic 88–133; BP diastolic 52–81; PULSE 84–112; RESP 18–29; TEMP 97.6–98.1; O2SAT 91–98
[2016-08-10] MEDS: CEFEPIME INJ 2,000 MG in SODIUM CHLORIDE 0.9% INJ 100 ML IV SCH ×2 (01:32→12:44)
[2016-08-10] MEDS: CHLORHEXIDINE GLUCONATE 2 % 1 PACK (2 CLOTHS) TOP SCH (01:32)
[2016-08-10] MEDS: RESP: ALBUTEROL 2.5 MG/IPRATROPIUM 0.5 MG NEB (PRN) INH ×3 (03:41→15:05)
[2016-08-10 04:41] LABS: AUTOMATED NEUTROPHIL # 3.3 TH/MM3 (1.8-7.7); BASOPHIL % 0.8 % (0.0-2.0); EOSINOPHIL # 0.1 TH/MM3 (0-0.4); EOSINOPHIL % 1.5 % (0.0-4.0); HEMATOCRIT 26.6 % (35.0-46.0); HEMO FLAGS DIFF FINAL; LYMPH % 18.5 % (9.0-44.0); MEAN CELL VOLUME 79.3 FL (80.0-100.0); MEAN CORPUSCULAR HEMOGLOBIN 27.6 PG (27.0-34.0); MEAN CORPUSCULAR HGB CONC 34.8 % (32.0-36.0); MONO % 16.1 % (0.0-8.0); NEUT % 63.1 % (16.0-70.0); PLATELET COUNT 200 TH/MM3 (150-450); RED BLOOD COUNT 3.35 MIL/MM3 (4.00-5.30); RED CELL DISTRIBUTION WIDTH 15.7 % (11.6-17.2); WHITE BLOOD COUNT 5.3 TH/MM3 (4.0-11.0)
[2016-08-10 05:10] LABS: BICARBONATE 25.1 MEQ/L (21.0-32.0); POTASSIUM 3.6 MEQ/L (3.5-5.1)
--- NOTE | 2016-08-10 07:57 | HHI.PR ---
Subjective Remarks This is a pleasant 81 y/o Female who was admitted 08/07/16 by security management specialist and was transferred to the Hospitalist group, she recently had Right leg Surgery, had recurrent UTIs, she took Monistat came to ER with chills, vomiting, abdominal pain after being seen in urgent care. His last several days prior to admission.. At that facility CXR showed Pneumomediastinum, seen with Tachycardia by Housekeeper Supervisor, CT scan taken here and CXR did not show Pneumomediastinum, received IV fluid resuscitation, was started on Cardizem, received Electrolyte replacement, CT Abdomen and Pelvis gave result of Right Pyelonephritis and Cholelithiasis. Diagnosis of Sepsis secondary to Pyelonephritis, positive Blood cultures with Gram negative Rods, was ordered to repeat cultures by Housekeeper Supervisor, she received Aztreonam and Gentamicin, now on Vancomycin and Cefepime started on 08/09, Urology consult placed yesterday and today asked for ID specialist consult. epoxy specialist consulted for new onset of Atrial Fibrillation and seen by Doctor Gregory Salmeron, with Diagnosis of New onset narrow complex tachycardia, possibly due to increased sympathetics due to her underlying Pathology, on Cardizem drip, Echocardiogram taken not yet read, CHADS VASc Score 3, the patient refused to be on blood thinners. Objective Vital Signs Date Time Temp Pulse Resp B/P Pulse Ox O2 Delivery O2 Flow Rate FiO2 08/10/16 06:00 91 08/10/16 04:00 112 08/10/16 04:00 97.8 112 28 110/61 96 08/10/16 02:00 86 08/10/16 00:00 91 08/10/16 00:00 98.0 91 23 88/52 94 08/09/16 23:00 95 08/09/16 22:00 104 08/09/16 20:33 97 Nasal Cannula 3.00 08/09/16 20:00 97.6 102 29 104/55 96 08/09/16 20:00 102 08/09/16 19:00 94 Nasal Cannula 4.00 08/09/16 16:00 97.9 120 24 135/69 95 08/09/16 12:00 97.6 94 24 134/61 98 08/09/16 09:48 99 Nasal Cannula 3.00 08/09/16 08:00 98.1 85 17 125/58 100 I/O 08/09/16 08/09/16 08/09/16 08/10/16 08/10/16 08/10/16 07:00 15:00 23:00 07:00 15:00 23:00 Intake Total 577 ml 1280 ml 663 ml 599 ml Output Total 500 ml 650 ml 700 ml 700 ml Balance 77 ml 630 ml -37 ml -101 ml Intake Oral 100 ml 600 ml 100 ml IV Total 477 ml 680 ml 563 ml 539 ml Other 60 ml Output Urine Total 500 ml 650 ml 700 ml 700 ml # Bowel Movements 0 0 0 0 Result Diagram: 08/10/16 0336 08/10/16 0336 Imaging Last Impressions Chest CT 08/07/16 1756 Signed Impressions: Service Date/Time: Sunday, August 07, 2016 19:28 - CONCLUSION: No acute process. Marcelo Jung MD Chest X-Ray 08/07/16 1728 Signed Impressions: Service Date/Time: Sunday, August 07, 2016 17:50 - CONCLUSION: No evidence of acute cardiopulmonary disease. Marcelo Jung MD Abdomen/Pelvis CT 08/07/16 0000 Signed Impressions: Service Date/Time: Sunday, August 07, 2016 19:28 - CONCLUSION: 1. Heterogeneous nephrogram and perinephric edema on the right without stone or convincing evidence of obstructive uropathy. Right pyelonephritis is suspected. 2. Large stone in an otherwise normal-appearing gallbladder. Marcelo Jung MD Procedures No procedures performed. Other Results Laboratory Tests Test 08/07/16 08/07/16 08/08/16 08/08/16 17:43 17:48 06:16 18:00 Urine Color YELLOW Urine Turbidity HAZY Urine pH 6.0 Urine Specific Sherrill 1.013 Urine Protein 100 mg/dL Urine Glucose (UA) NEG mg/dL Urine Ketones 10 mg/dL Urine Occult Blood SMALL Urine Nitrite NEG Urine Bilirubin NEG Urine Urobilinogen LESS THAN 2.0 MG/DL Urine Leukocyte Esterase LARGE Urine RBC 8 /hpf Urine WBC 97 /hpf Urine WBC Clumps FEW Urine Squamous Epithelial 2 /hpf Cells Urine Bacteria OCC /hpf Urine Mucus FEW /lpf Microscopic Urinalysis Comment CATH-CULTURE IND Total Creatine Kinase 50 U/L Differential Total Cells 100 Counted Neutrophils % (Manual) 78 % Band Neutrophils % 8 % Lymphocytes % 7 % Monocytes % 6 % Basophils % 1 % Neutrophils # (Manual) 9.2 TH/MM3 Platelet Estimate NORMAL Platelet Morphology Comment NORMAL Fibrinogen 571 mg/dL Troponin I 0.06 NG/ML Thyroid Stimulating Hormone 1.500 uIU/ML 3rd Gen Nasal Screen MRSA (PCR) NEGATIVE Test 08/09/16 08/10/16 03:14 03:36 Prothrombin Time 10.8 SEC Prothromb Time International 1.0 RATIO Ratio Activated Partial 32.8 SEC Thromboplast Time Lactic Acid Level 0.9 mmol/L Phosphorus Level 2.5 MG/DL Magnesium Level 2.2 MG/DL Total Bilirubin 0.4 MG/DL Aspartate Amino Transf 27 U/L (AST/SGOT) Alanine Aminotransferase 28 U/L (ALT/SGPT) Alkaline Phosphatase 175 U/L Total Protein 5.5 GM/DL Albumin 2.1 GM/DL White Blood Count 5.3 TH/MM3 Red Blood Count 3.35 MIL/MM3 Hemoglobin 9.2 GM/DL Hematocrit 26.6 % Mean Corpuscular Volume 79.3 FL Mean Corpuscular Hemoglobin 27.6 PG Mean Corpuscular Hemoglobin 34.8 % Concent Red Cell Distribution Width 15.7 % Platelet Count 200 TH/MM3 Mean Platelet Volume 8.3 FL Neutrophils (%) (Auto) 63.1 % Lymphocytes (%) (Auto) 18.5 % Monocytes (%) (Auto) 16.1 % Eosinophils (%) (Auto) 1.5 % Basophils (%) (Auto) 0.8 % Neutrophils # (Auto) 3.3 TH/MM3 Lymphocytes # (Auto) 1.0 TH/MM3 Monocytes # (Auto) 0.9 TH/MM3 Eosinophils # (Auto) 0.1 TH/MM3 Basophils # (Auto) 0.0 TH/MM3 CBC Comment DIFF FINAL Differential Comment Sodium Level 146 MEQ/L Potassium Level 3.6 MEQ/L Chloride Level 113 MEQ/L Carbon Dioxide Level 25.1 MEQ/L Anion Gap 8 MEQ/L Blood Urea Nitrogen 8 MG/DL Creatinine 0.53 MG/DL Estimat Glomerular Filtration 111 ML/MIN Rate Random Glucose 93 MG/DL Calcium Level 8.3 MG/DL Objective Remarks GENERAL: No acute distress. SKIN: Warm and dry. No rash. Well-perfused HEAD: Atraumatic. Normocephalic. EYES: Pupils equal and round. No scleral icterus. No injection or drainage. ENT: No nasal bleeding or discharge. Mucous membranes pink and moist. NECK: Trachea midline. No JVD. CARDIOVASCULAR: Regular rate and rhythm. S1, S2. No S4. Without murmur RESPIRATORY: No accessory muscle use. Clear to auscultation. Breath sounds equal bilaterally. GASTROINTESTINAL: Abdomen soft, tender to deep palpation right flank., nondistended. Hypoactive bowel sounds appreciated MUSCULOSKELETAL: Extremities without significant peripheral edema. No obvious deformities. NEUROLOGICAL: Awake and alert. No obvious cranial nerve deficits. Motor grossly within normal limits. Five out of 5 muscle strength in the arms and legs. Normal speech. PSYCHIATRIC: Appropriate mood and affect; insight and judgment normal. Medications and IVs Current Medications Medications (Trade) Dose Ordered Sig/Juma Route Start Time Stop Time Status Last Admin (NS + KCl 20 Meq Inj) 1,000 ml @ 60 mls/hr [id number] IV 08/08/16 06:10 08/09/16 14:45 (NS Flush) 2 ml UNSCH PRN IV FLUSH 08/08/16 06:15 (NS Flush) 2 ml BID IV FLUSH 08/08/16 09:00 08/09/16 19:54 (Tylenol) 650 mg Q6H PRN PO 08/08/16 06:15 08/09/16 20:00 ([place] 5-325 Mg) 1 tab Q4H PRN PO 08/08/16 06:15 (Morphine Inj) 2 mg Q2H PRN IV 08/08/16 06:15 (Protonix) 40 mg DAILY PO 08/08/16 09:00 08/09/16 08:51 (Zofran Inj) 4 mg Q6H PRN IV 08/08/16 06:15 (Colace) 100 mg BID PO 08/08/16 09:00 08/08/16 20:07 (Senokot) 17.2 mg Q12H PRN PO 08/08/16 06:15 (Lovenox Inj) 40 mg Q24H SQ 08/08/16 09:00 08/09/16 08:51 Miscellaneous Information 1 Q361D XX 08/08/16 06:15 (Chlorhexidine 2% Cloth) 3 pack Taper DAILY@04 TOP 08/09/16 04:00 08/05/17 03:59 08/10/16 01:32 Chlorhexidine Gluconate 3 pack 3 pack UNSCH PRN TOP 08/08/16 06:15 (Vancomycin Consult Pharmacy) 0 ml @ 0 mls/hr UNSCH XX 08/08/16 06:15 Miscellaneous Information SPECIFIC LAB TO BE ... ONCE ONCE XX 08/10/16 08:45 08/10/16 08:46 Cefepime HCl 2000 mg/Sodium Chloride 100 ml @ 200 mls/hr Q12H IV 08/09/16 14:00 08/10/16 01:32 (Cardizem Inj/NS Inj) 125 ml @ 0 mls/hr TITRATE IV 08/09/16 18:00 08/09/16 16:57 A/P Assessment and Plan 1. Narrow complex tachycardia improved to be in sinus rhythm,likely electrolyte induced Currently off diltiazem drip, tat was started in Emergency room, Troponin within normal limits TSH within normal limits, awaiting for Echocardiogram result, seen by epoxy specialist Doctor Gregory Salmeron emory attention about the use of sympathetics due to her underlying condition, CHADS VASc Score 3 but the patient do not want to start blood thinners. 2. Ruled out Pneumomediastinum, continue Oxygen to keep saturation over 92%, Bronchodilator Mucolytic and Incentive spirometry. 3. Cholelithiasis, Regular diet, Protonix for GI Prophylaxis, asymptomatic 4. Right Pyelonephritis on Aztreonam and Gentamicin given in ER, receiving Hydration, patient Allergic to Amoxicillin causes Nausea. blood culture positive for E Coli started on Cefepime ID consult placed for Gram Negative Bacteremia. 5. Electrolyte derangement replaced in intensive care unit 6. Leukocytosis 7. OA has PT and OT following Discussed with patient in her bedroom asking for labeling specialist consult I reviewed the CT scan and did not find Pathology to ask for specialist consult will follow Cardiology and ID recommendations. Prophylaxis - GI - Protonix - DVT - SCD/Lovenox Discharge Planning expected in one to two days. Boni Knight MD Aug 10, 2016 07:57 Urine culture/blood cultures 22/03 pending Influenza negative FEN: Hypokalemia Hypophosphatemia Replace in ED. Recheck this AM. MSK: Osteoarthritis PT evaluate and treat Access - Utilize peripheral IV. Central line if indicated Prophylaxis - GI - Protonix - DVT - SCD/Lovenox Level III consult. Assign care to hospitalist in a.m. 08/09. Code Status Full code Discussed Condition With Dr. Kaya jiménez ED physician and patient. Care plan discussed all questions answered. Problem Qualifiers (1) Osteoarthritis of right knee: Qualified Code: M17.11 - Osteoarthritis of right knee, unspecified osteoarthritis type (2) Leukocytosis: Qualified Code: D72.825 - Bandemia Andre Leal MD Aug 08, 2016 05:41 Boni Knight MD Aug 10, 2016 07:57
[2016-08-10] MEDS: DOCUSATE SODIUM 100 MG CAP PO SCH ×2 (08:33→19:52)
[2016-08-10] MEDS: PANTOPRAZOLE SOD 40 MG DELAYED RELEASE TAB PO SCH (08:33)
[2016-08-10] MEDS: ENOXAPARIN SODIUM 40 MG/0.4 ML SYRINGE SQ SCH (08:33)
[2016-08-10] MEDS: SODIUM CHLORIDE 0.9% FLUSH 5 ML FLUSH IV FLUSH SCH ×2 (08:33→19:52)
[2016-08-10] MEDS ORDERED: PHARMACY ORDERED LAB XX ONE (08:45)
[2016-08-10] MEDS: DILTIAZEM INJ 125 MG in SODIUM CHLORIDE 0.9% INJ 100 ML IV SCH (09:00)
--- NOTE | 2016-08-10 11:02 | MB ---
cc: GREGORY CANO DO DATE OF CONSULTATION: 08/10/2016 REASON FOR CONSULTATION Tachyarrhythmia. HISTORY OF PRESENT ILLNESS Marianne Hill is a pleasant 81-year-old female who originally presented to [facility] Emergency Room on August 07, 2016 due to chills, vomiting and abdominal pain. Before presenting to the emergency room she went to an urgent care. During there she had a chest x-ray which showed possible pneumomediastinum and she was in sinus tachycardia in the 120s. The Urgent Care sent her to the emergency room by ambulance. Per the patient she had been having these symptoms for the past couple of days. She denies any chest pain with these episodes. She is slightly more short of breath than usual but she feels similar to her baseline. On arrival she was found to have a narrow complex tachyarrhythmia and given Cardizem and then placed on a Cardizem drip. She was weaned off the Cardizem drip and was transferred from the ICU to the floor. She was found to go back into what appears to be atrial fibrillation with a rapid ventricular response. She was given Cardizem IV and restarted on a Cardizem drip. I was consulted for new onset atrial fibrillation. In discussing with her she states that she has no chest pain and has essentially baseline shortness of breath. She does have palpitations every now and then but they are short in duration. PAST MEDICAL HISTORY 1. Osteoarthritis. 2. Breast cancer. 3. Multiple UTIs. PAST SURGICAL HISTORY 1. Appendectomy. 2. Right leg surgery. 3. Bilateral cataract removal. 4. Partial hysterectomy. 5. Tonsillectomy. 6. Left mastectomy. ALLERGIES AMOXICILLIN. MEDICATIONS Naproxen 375 mg b.i.d. as needed. FAMILY HISTORY Two of her children have a history of SVT, but unsure what kind of SVT. SOCIAL HISTORY Denies tobacco, alcohol or IV drug abuse. REVIEW OF SYSTEMS 14-systems were reviewed in the history and physical with above pertinent positives and negatives; otherwise negative. PHYSICAL EXAMINATION VITAL SIGNS: Temperature 97.8, heart rate 91, blood pressure 110/61, respirations 22, pulse ox 96% on three liters. GENERAL: The patient appears well in no acute distress, awake, alert and oriented x3. HEENT: Extraocular muscles intact. Mucous membranes moist. NECK: Supple. No JVD at 45 degrees. No carotid bruits heard bilaterally. Carotid upstroke is brisk in nature. HEART: Regular rate and rhythm. Positive first and second heart sounds with a 1/6 crescendo-decrescendo murmur to the right sternal border. LUNGS: Decreased breath sounds at bilateral bases but no overt wheezes, rales or rhonchi. ABDOMEN: Soft, nontender, nondistended. No organomegaly noted. EXTREMITIES: No clubbing, cyanosis or edema. Femoral and distal pulses intact bilaterally. NEUROLOGIC: No focal deficits. SKIN: Warm, dry and intact. MUSCULOSKELETAL: Osteopathically no kyphoscoliosis, lordosis or paraspinal tender points. LABORATORY DATA Hemoglobin 9.2, hematocrit 26.6, platelets 200. Potassium 3.6, BUN 8, creatinine 0.53. Troponin 0.06. ELECTROCARDIOGRAM Electrocardiogram (August 07, 2016 at 1834): Narrow complex tachycardia at a rate of 147 beats per minute that does have some mild R-R variability, possibly atrial fibrillation versus atrial flutter. IMPRESSION 1. New onset narrow complex tachycardia, possibly due to increased sympathetics due to her underlying illness. 2. Right pyelonephritis. 3. Electrolyte derangement. 4. Leukocytosis. 5. Questionable pneumomediastinum on arrival. RECOMMENDATIONS 1. Marianne Hill appears to have a new onset narrow complex tachycardia. On EKG it is difficult to tell what the rhythm is, but she has had multiple telemetry strips showing R-R variability without P-waves consistent with atrial fibrillation with rapid ventricular response. After she converts out of this she does go to normal sinus rhythm. 2. She is currently on a Cardizem drip at 5 mg per hour. It does not seem that she was ever placed on Cardizem p.o. after being removed from the drip last time. Will plan on placing her on 30 mg q.6h., and this can be up titrated as needed. 3. Will check a 2-D echo to look at her overall left ventricular function, cardiac structure and possible valvulopathies. 4. I did speak extensively to her about consideration of anticoagulation as her CHADS-VASc score is 3. She states that she does not want to be on a blood thinner at all due to her fear of bleeding due to this. I did explain that this does put her at an extreme risk for stroke but she understands this and will continue on aspirin 81 mg. 5. I did speak to her about possible stress testing and she would like to wait until the outpatient setting to consider it. 6. Upon discharge will consider follow-up either here or with my partners in [place] as she does live in [place]. Thank you for allowing me to see Marianne Hill. If there are any questions, please do not hesitate to call. Gregory Cano DO VGP/BT /9:13 AM /9:41 AM
[2016-08-10] MEDS: ASPIRIN 81 MG CHEW TAB CHEW SCH (11:34)
[2016-08-10] MEDS: NS + KCL 20 MEQ INJ 1,000 ML IV SCH (12:44)
[2016-08-10] MEDS: DILTIAZEM HCL 30 MG TAB PO SCH ×3 (12:44→19:52)
[2016-08-10] MEDS ORDERED: FUROSEMIDE 20 MG/2 ML VIAL IV PUSH ONE (15:00)
[2016-08-10] MEDS: RESP: IPRATROPIUM 0.5 MG/2.5 ML NEB NEB SCH ×2 (16:00→21:59)
--- NOTE | 2016-08-10 17:40 | MB ---
cc: BRANDI HARRIS MD DATE OF CONSULTATION 08/10/2016 REASONS FOR CONSULTATION 1. Recurrent urinary tract infections. 2. Right pyelonephritis. HISTORY OF THE PRESENT ILLNESS The patient is an 81-year-old female who presented to the ER with nausea, vomiting, abdominal pain and chills that had been seen earlier in the Urgent Care. This has been going on for 3-4 days. At the urgent care she had a chest x-ray done which showed pneumomediastinum and she was in sinus tach at 120 and therefore, she was advised that she should go to the emergency room for further evaluation. In the ER she had a CT scan abdomen and pelvis which showed right perinephric stranding and perinephric edema consistent with right pyelonephritis. She was admitted for further management and started on IV antibiotics. Urology was consulted for this right pyelonephritis and recurrent urinary tract infections. Discussion with the patient, she has been having frequent urinary tract infections for the past 18 months. Her symptoms usually include dysuria and worsening frequency. She states this feels like she is burning all the time, regardless of urinating or not. She also frequently has chills with these infections. She has not seen a primary care physician but frequently goes to urgent care. She denies a history of kidney stones, however, her had stones in the past. She denies hematuria but she frequently leaks urine with coughing, sneezing, or standing up including today when she stood up and flooded the bed. Her incontinence is bothersome to her. After several days of antibiotics she does feel better. Her nausea and vomiting have resolved. Her blood cultures currently are positive and infectious disease is managing her IV antibiotics. She currently denies flank pain at this time as well. REVIEW OF SYSTEMS See history of present illness,12 point review of systems performed, otherwise negative. ALLERGIES INCLUDE AMOXICILLIN. PAST MEDICAL HISTORY 1. Osteoarthritis. 2. Recurrent urinary tract infections. PAST SURGICAL HISTORY 1. She has a history of left breast mastectomy. 2. Hysterectomy. 3. Bilateral cataract surgery. MEDICATIONS Home medications include: Naprosyn. FAMILY HISTORY Negative for genitourinary malignancies. Her had kidney stones. SOCIAL HISTORY Denies tobacco, alcohol or illicit drugs. and has seven children. PHYSICAL EXAMINATION VITAL SIGNS: Temperature 98.1, pulse 97, respiration 19, BP 121/60, sating 98% on room air. GENERAL: She is alert and oriented times three. In no acute distress. Pleasant, cooperative lady appears stated age. HEAD: Normocephalic, atraumatic. EYES: No scleral icterus. Extraocular muscles intact. NECK: Supple. Trachea is midline. LUNGS: Clear to auscultation bilaterally. No wheezes or rales. HEART: Regular rate and rhythm. No murmurs, gallops or rubs. ABDOMEN: Soft, nontender, nondistended. Positive bowel sounds. GENITOURINARY: No CVA tenderness bilaterally. PELVIC: Exam not indicated at this time. EXTREMITIES: Nontender. No clubbing, cyanosis, edema. SKIN: No ulcers or rashes. PSYCHIATRIC: Normal affect. NEUROLOGICAL: Cranial nerves II-XII intact. Alert and oriented times three. LABORATORY DATA Show a white count of 5.3, hemoglobin 9.2, hematocrit 26.6, platelet count 200. Sodium 146, potassium 3.6, chloride 113, bicarb 25.1, BUN is 8, creatinine is 0.53, glucose 93, calcium 8.3. Her urine showed large leukocyte esterase, small blood. Negative nitrates IMAGING STUDIES CT of the abdomen and pelvis without contrast was reviewed. I agree with radiologist's report, the patient has perinephric stranding and edema right kidney consistent with right pyelonephritis. However, no evidence of hydronephrosis or stones were seen. ASSESSMENT The patient is an 81-year-old female with recurrent urinary tract infections and stress incontinence who is admitted with right pyelonephritis. PLAN 1. Recommend continuing IV antibiotics per infectious disease. We will defer to their management. 2. CT was negative for stones. No obvious nidus for her recurrent infections. 3. Recommend cystoscopy as an outpatient to evaluate her bladder anatomy. Thank you for this consultation. Please call with any questions, we are available as needed. MD TERESA Lama/CAITLYN /3:36 PM /4:09 PM SHANELLE
--- NOTE | 2016-08-10 19:20 | PD.ID.CON ---
History of Present Illness Service ID Consult Requested By Dr Joshi Reason for Consult E.coli UTI, bacteremia Primary Care Physician Ashley Burrell M.D. Diagnoses: History of Present Illness 81 yo female who denies major medical issues except for remote breast CA (1997) developped frequent UTIs Noted disuria, fever, chills for almost a week and presented 2 days ago with above complaints to [facility]gent care She was admitted to [facility] after w/o in [place] She has leuikocytosis, bandemia, abdnomal UA, Her urine and blood clx all growing E.coli; blood clx 3/4 bottles are positive Repeat blood clx negative Pt feels much better She is afebrile Leukocytosis improved Pt admitted to ICU 2/ new onset tachycardia CT showed R side pyelonephritis Pt was seen by urologuist who recommended o/p cystoscopy for recurrent UTI s w/u Review of Systems Except as stated in HPI: all other systems reviewed are Neg Past Family Social History Allergies: Coded Allergies: Amoxicillin (Verified Allergy, Severe, Nausea/Vomiting, 08/07/16) Past Medical History Osteoarthritis h/o L breast ca Past Surgical History Bilateral cataract R knee TKA Hysterectomy Active Ordered Medications Medications where reviewed in EMR Antibiotics Include: cefepime Family History noncontributory Social History No tobacco alcohol or IV drug use Physical Exam Vital Signs Vital Signs Date Time Temp Pulse Resp B/P Pulse Ox O2 Delivery O2 Flow Rate FiO2 08/10/16 16:00 98.0 98 20 120/81 95 08/10/16 15:00 100 08/10/16 12:00 98.1 97 19 121/60 95 08/10/16 10:51 98 Nasal Cannula 2.00 08/10/16 08:00 97.9 84 18 112/55 91 08/10/16 08:00 84 08/10/16 08:00 Nasal Cannula 2.00 08/10/16 06:00 91 08/10/16 04:00 112 08/10/16 04:00 97.8 112 28 110/61 96 08/10/16 02:00 86 08/10/16 00:00 91 08/10/16 00:00 98.0 91 23 88/52 94 08/09/16 23:00 95 08/09/16 22:00 104 08/09/16 20:33 97 Nasal Cannula 3.00 08/09/16 20:00 97.6 102 29 104/55 96 08/09/16 20:00 102 Physical Exam CONSTITUTIONAL/GENERAL: This is an adequately nourished patient, in no apparent distress. TUBES/LINES/DRAINS: SKIN: No jaundice, rashes, or lesions. Skin temperature appropriate. Not diaphoretic. HEAD: Atraumatic. Normocephalic. EYES: Pupils equal and round and reactive. Extraocular motions intact. No scleral icterus. No injection or drainage. Fundi not examined. ENT: Hearing grossly normal. Nose without bleeding or purulent drainage. Oral mucosae without visible erythema, exudates, masses, or lesions. NECK: Trachea midline. Supple, nontender. CARDIOVASCULAR: Regular rate and rhythm without murmurs, gallops, or rubs. No JVD. Peripheral pulses symmetric. RESPIRATORY/CHEST: Symmetric, unlabored respirations. Clear to auscultation. Breath sounds equal bilaterally. No wheezes, rales, or rhonchi. GASTROINTESTINAL: Abdomen soft, non-tender, + moerately distended. No hepato- splenomegaly, or palpable masses. No guarding. Bowel sounds present. GENITOURINARY: Without palpable bladder distension. MUSCULOSKELETAL: Extremities without clubbing, cyanosis, or edema. No joint tenderness or effusion noted. No calf tenderness. No mottling or clubbing. LYMPHATICS: No palpable cervical or supraclavicular adenopathy. NEUROLOGICAL: Awake and alert. Motor and sensory grossly within normal limits. Follows commands. Normal speech. Moves all extremities. PSYCHIATRIC: No obvious anxiety/depression. no apparent hallucinations or other psychotic thought process. Laboratory Laboratory Tests Test 08/10/16 03:36 White Blood Count 5.3 Red Blood Count 3.35 Hemoglobin 9.2 Hematocrit 26.6 Mean Corpuscular Volume 79.3 Mean Corpuscular Hemoglobin 27.6 Mean Corpuscular Hemoglobin 34.8 Concent Red Cell Distribution Width 15.7 Platelet Count 200 Mean Platelet Volume 8.3 Neutrophils (%) (Auto) 63.1 Lymphocytes (%) (Auto) 18.5 Monocytes (%) (Auto) 16.1 Eosinophils (%) (Auto) 1.5 Basophils (%) (Auto) 0.8 Neutrophils # (Auto) 3.3 Lymphocytes # (Auto) 1.0 Monocytes # (Auto) 0.9 Eosinophils # (Auto) 0.1 Basophils # (Auto) 0.0 CBC Comment DIFF FINAL Differential Comment Sodium Level 146 Potassium Level 3.6 Chloride Level 113 Carbon Dioxide Level 25.1 Anion Gap 8 Blood Urea Nitrogen 8 Creatinine 0.53 Estimat Glomerular Filtration 111 Rate Random Glucose 93 Calcium Level 8.3 Date/Time Procedure Status Source Growth 08/09/16 13:01 Aerobic Blood Culture - Preliminary Resulted Blood Peripheral NO GROWTH IN 1 DAY 08/09/16 13:01 Anaerobic Blood Culture - Preliminary Resulted Blood Peripheral NO GROWTH IN 1 DAY 08/07/16 18:05 Influenza Types A,B Antigen ([place]) - Final Complete Nasal Aspirate NEGATIVE FOR FLU A AND B ANTIGEN.... 08/07/16 17:48 Aerobic Blood Culture - Final Complete Blood Peripheral Escherichia Coli 08/07/16 17:48 Anaerobic Blood Culture - Final Complete Escherichia Coli 08/07/16 17:43 Urine Culture - Final Complete Urine Clean Catch Escherichia Coli Result Diagram: 08/10/16 0336 08/10/16 0336 Imaging Last Impressions Chest CT 08/07/16 1756 Signed Impressions: Service Date/Time: Sunday, August 07, 2016 19:28 - CONCLUSION: No acute process. Marcelo Jung MD Chest X-Ray 08/07/16 1728 Signed Impressions: Service Date/Time: Sunday, August 07, 2016 17:50 - CONCLUSION: No evidence of acute cardiopulmonary disease. Marcelo Jung MD Abdomen/Pelvis CT 08/07/16 0000 Signed Impressions: Service Date/Time: Sunday, August 07, 2016 19:28 - CONCLUSION: 1. Heterogeneous nephrogram and perinephric edema on the right without stone or convincing evidence of obstructive uropathy. Right pyelonephritis is suspected. 2. Large stone in an otherwise normal-appearing gallbladder. Marcelo Jung MD Assessment and Plan Assessment and Plan R side pyelonephritis, E.coli E.coli sepsis lozano S Recurrent UTIs dc cefepime start cipro IV anticipate transition to po abx to complete 14 day course Haylee Gongora MD Aug 10, 2016 19:20
[2016-08-10] MEDS: guaiFENesin E.R. 600 MG TAB PO SCH (19:52)
[2016-08-10] MEDS ORDERED: CIPROFLOXACIN 400 MG PREMIX 200 ML IV SCH (20:30)
[2016-08-10] MEDS: CIPROFLOXACIN 400 MG PREMIX 200 ML IV SCH (22:33)
[2016-08-11] VITALS (14 sets, daily range): BP systolic 114–133; BP diastolic 64–74; PULSE 81–109; RESP 18–37; TEMP 96.8–98.6; O2SAT 90–97
[2016-08-11] MEDS: RESP: IPRATROPIUM 0.5 MG/2.5 ML NEB NEB SCH ×4 (04:00→23:39)
[2016-08-11] MEDS: CHLORHEXIDINE GLUCONATE 2 % 1 PACK (2 CLOTHS) TOP SCH (04:00)
[2016-08-11] MEDS ORDERED: DILTIAZEM HCL 25 MG/5 ML VIAL IV ONE (07:00)
--- NOTE | 2016-08-11 07:36 | MB ---
cc: HILLARY ROA MD DATE OF CONSULTATION 08/10/[address] Joshi REASON FOR CONSULTATION Evaluation for shortness of breath. Possible pneumomediastinum. HISTORY OF PRESENT ILLNESS Ms. Hill is a pleasant 81-year-old female who has history of multiple UTIs. She had a cough, nausea, vomiting. She was seen at an Urgent Care Center and was told that chest x-ray showed pneumomediastinum. The patient came to the hospital. She was evaluated in the emergency room. She had a CT scan of the chest done which does not show any pneumomediastinum. No acute process was seen and CT scan of abdomen and the pelvis shows perinephric edema on the right without stone or obstructive uropathy. The patient was seen by urologist. She is on antibiotic. She has occasional cough and congestion. She uses a nebulizer p.r.n. off and on, has no asthma, COPD or emphysema. PAST MEDICAL HISTORY 1. History of osteoarthritis. 2. Knee surgery. 3. Frequent UTIs. 4. CA of the breast status post left mastectomy. She took tamoxifen for five years. 5. History of bilateral cataract surgery. 6. Hysterectomy. MEDICATIONS She is currently taking - 1. Mucinex ER 600 mg twice a day. 2. Atrovent nebulizer treatment 3. Cardizem 30 mg four times a day. 4. Aspirin 800 mg a day. 5. Cefepime 2 grams q. 12-hours. 6. Protonix 40 mg a day. 7. Colace 100 mg twice a day. 8. Lovenox 40 mg a day. 9. [place] for pain as needed. ALLERGIES AMOXICILLIN. SOCIAL HISTORY She has positive smoking and alcohol abuse. 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 FAMILY HISTORY She is . She has seven children. REVIEW OF SYSTEMS Normally she is up, around and active. No headache, dizziness, no weakness and no DVT or pulmonary embolism. No asthma, emphysema or COPD. PHYSICAL EXAMINATION GENERAL: A pleasant, elderly female, not in acute distress. VITAL SIGNS: Blood pressure 120/81, heart rate 98, respirations 20. Temperature 98. HEENT EXAMINATION: Pupils are equal and react to light. She had bilateral cataract surgery done. Oral mucosa, nasal mucosa normal. NECK: Supple. JVP not raised. CHEST: Equal. No rhonchi. CV: S1 and S2 normal. ABDOMEN: Benign. EXTREMITIES: No edema. IMPRESSION 1. Pulmonary congestion. She uses nebulizer treatment to help her. 2. Recurrent UTI. 3. No evidence of pneumomediastinum. 4. History of CA of the breast, status post mastectomy. PLAN 1. I reassured her that there is no pneumomediastinum, not to be concerned. 2. She is to use the nebulizer as needed. 3. Wean off her oxygen. 4. Continue antibiotic as per ID recommendation. 5. Further treatment and recommendations will depend on her course in the hospital. Thank you, Dr. Joshi, for this consult. MD RONALDO Whittington/SSB /6:54 PM /5:57 AM
[2016-08-11] MEDS: DOCUSATE SODIUM 100 MG CAP PO SCH ×2 (09:00→20:20)
[2016-08-11] MEDS: SODIUM CHLORIDE 0.9% FLUSH 5 ML FLUSH IV FLUSH SCH ×2 (09:00→20:20)
--- NOTE | 2016-08-11 09:11 | EC ---
Study Study Date:08/10/2016 STUDY CONCLUSIONS SUMMARY - Left ventricle: The cavity size was normal. Wall thickness was increased in a pattern of mild LVH. There was concentric hypertrophy. Systolic function was normal. The estimated ejection fraction was in the range of 60% to 65%. Wall motion was normal; there were no regional wall motion abnormalities. Left ventricular diastolic function parameters were normal. - Aortic valve: Trace regurgitation. - Mitral valve: Mildly calcified annulus. If LV function is below 40, please consider prescribing an ACEI or ARB or document rationale for non-use. PROCEDURE DATA STUDY STATUS: Elective. Procedure: Transthoracic echocardiography. Image quality was good. Scanning was performed from the parasternal, apical, and subcostal acoustic windows. Study completion: The patient tolerated the procedure well. Transthoracic echocardiography. M-mode, complete 2D, complete spectral Doppler, and color Doppler. Height: Height: 64in. Weight: Weight: 178.6lb. Body mass index: BMI: 30.7kg/m^2. Body surface area: BSA: 1.87m^2. Patient status: Inpatient. CARDIAC ANATOMY LEFT VENTRICLE: The cavity size was normal. Wall thickness was increased in a pattern of mild LVH. There was concentric hypertrophy. Systolic function was normal. The estimated ejection fraction was in the range of 60% to 65%. Wall motion was normal; there were no regional wall motion abnormalities. Left ventricular diastolic function parameters were normal. AORTIC VALVE: Mildly calcified leaflets. Doppler: There was no stenosis. Trace regurgitation. Valve area: 2.64cm^2 (Vmax). Indexed valve area: 1.41cm^2/m^2 (Vmax). MITRAL VALVE: Mildly calcified annulus. Doppler: There was no evidence for stenosis. No significant regurgitation. Valve area by pressure half-time: 3.86cm^2. Indexed valve area by pressure half-time: 2.06cm^2/m^2. Peak gradient: 4mm Hg (D). LEFT ATRIUM: The atrium was normal in size. RIGHT VENTRICLE: The cavity size was normal. PULMONIC VALVE: Not well visualized. Doppler: There was no evidence for stenosis. Trace regurgitation. TRICUSPID VALVE: The valve appears to be grossly normal. Doppler: There was no evidence for stenosis. Trace regurgitation. Peak gradient: 36mm Hg (D). PERICARDIUM: There was no pericardial effusion. Patient weight: 178.6lb _Ejection fraction:_ 65-75% _Fractional shortening:_ 32% up to 5Kg 5-11.5Kg 11.6-22.9Kg 23-45Kg 45-57Kg Aortic Root 7-13 <17 13-22 17-27 17-27 LA diam 6-13 <23 24-38 33-47 37-40 RVID 10-17 7-15 7-15 7-18 8-17 LVIDd 12-22 <32 24-38 33-47 37-40 LVPW 2-4 3-6 5-7 6-8 7-8 IVS 2-4 3-6 5-7 6-8 7-8 BASIC MEASUREMENTS ADULT NORMAL Left ventricle LV internal dimension, ED, chordal 45.7 mm 43-52 level, PLAX LV internal dimension, ES, chordal 25.4 mm 23-38 level, PLAX Fractional shortening, chordal level, 44 % >29 PLAX LV posterior wall thickness, ED 11.6 mm IVS/LVPW ratio, ED 0.97 <1.3 Volume, ED, MOD, 1-plane 59 ml Volume, ES, MOD, 1-plane 23 ml Ejection fraction, MOD, 1-plane 61 % Stroke volume, MOD, 1-plane 36 ml Volume index, ED, MOD, 1-plane 32 ml/m^2 Volume index, ES, MOD, 1-plane 12 ml/m^2 Stroke index, MOD, 1-plane 19.3 ml/m^2 Ventricular septum Septal thickness, ED 11.3 mm Aortic valve Leaflet separation 18 mm 15-26 Left atrium Anterior-posterior dimension 32 mm Anterior-posterior dimension index 1.71 cm/m^2 <2.2 BASIC MEASUREMENTS ADULT NORMAL Aortic valve Leaflet separation 18 mm 15-26 Aorta Root diameter, ED 27 mm 20-37 DOPPLER MEASUREMENTS ADULT NORMAL Aortic valve Peak velocity, S 156 cm/s Valve area, Vmax 2.64 cm^2 Valve area index, Vmax 1.41 cm^2/m^2 Regurgitant velocity, ED 323 cm/s Regurgitant deceleration 1650 cm/s^2 Regurgitant pressure half-time 573 ms Regurgitant gradient, ED 42 mm Hg Mitral valve Peak E-wave velocity 96 cm/s Peak A-wave velocity 121 cm/s Pressure half-time 57 ms Peak gradient, D 4 mm Hg Peak E/A ratio 0.8 Valve area, pressure half-time 3.86 cm^2 Valve area index, pressure half-time 2.06 cm^2/m^2 Tricuspid valve Peak gradient, D 36 mm Hg Maximal inflow velocity 300 cm/s Systemic veins Estimated CVP 10 mm Hg Pulmonic valve Peak velocity, S 95 cm/s LEGEND: Mean values are shown as u=mean value. Asterisk (*) luu values outside specified normal range. Prepared and signed by Gregory Salmeron [id number]
[2016-08-11] MEDS: PANTOPRAZOLE SOD 40 MG DELAYED RELEASE TAB PO SCH (09:15)
[2016-08-11] MEDS: DILTIAZEM HCL 30 MG TAB PO SCH (09:15)
[2016-08-11] MEDS: ENOXAPARIN SODIUM 40 MG/0.4 ML SYRINGE SQ SCH (09:15)
[2016-08-11] MEDS: ASPIRIN 81 MG CHEW TAB CHEW SCH (09:15)
[2016-08-11] MEDS: guaiFENesin E.R. 600 MG TAB PO SCH ×2 (09:15→20:20)
[2016-08-11] MEDS: CIPROFLOXACIN 400 MG PREMIX 200 ML IV SCH ×2 (09:19→20:54)
[2016-08-11] MEDS: NS + KCL 20 MEQ INJ 1,000 ML IV SCH (09:22)
--- NOTE | 2016-08-11 10:34 | HHI.PR ---
Subjective Remarks The patient wanted to know why she felt so short of breath. She would like to go home soon. She says she definitely does not want any blood thinners and understands the risks associated with that. Discussed with nursing. Objective Vitals Vital Signs Date Time Temp Pulse Resp B/P Pulse Ox O2 Delivery O2 Flow Rate FiO2 08/11/16 06:00 109 08/11/16 04:00 85 08/11/16 04:00 98.4 85 37 133/70 92 08/11/16 02:00 83 08/11/16 00:00 98.6 81 25 127/64 97 08/11/16 00:00 81 08/10/16 22:00 95 08/10/16 22:00 95 08/10/16 21:58 97 Nasal Cannula 2.00 08/10/16 20:00 100 08/10/16 20:00 97.6 100 29 133/74 97 08/10/16 19:00 97 Nasal Cannula 2.00 08/10/16 16:00 98.0 98 20 120/81 95 08/10/16 15:00 100 08/10/16 12:00 98.1 97 19 121/60 95 08/10/16 10:51 98 Nasal Cannula 2.00 I/O 08/10/16 08/10/16 08/10/16 08/11/16 08/11/16 08/11/16 07:00 15:00 23:00 07:00 15:00 23:00 Intake Total 599 ml 949 ml 1047 ml 589 ml Output Total 700 ml 675 ml Balance -101 ml 949 ml 1047 ml -86 ml Intake Oral 480 ml 120 ml 120 ml IV Total 539 ml 469 ml 927 ml 469 ml Other 60 ml Output Urine Total 700 ml 675 ml # Voids 4 3 2 # Bowel Movements 0 0 1 0 Result Diagram: 08/10/16 0336 08/10/16 033 Imaging Last Impressions Chest CT 08/07/161755 Signed Impressions: Service Date/Time: Sunday, August 07, 2016 19:28 - CONCLUSION: No acute process. Marcelo Jung MD Chest X-Ray 08/07/16 9749 Signed Impressions: Service Date/Time: Sunday, August 07, 2016 17:50 - CONCLUSION: No evidence of acute cardiopulmonary disease. Marcelo Jung MD Abdomen/Pelvis CT 08/07/16 0000 Signed Impressions: Service Date/Time: Sunday, August 07, 2016 19:28 - CONCLUSION: 1. Heterogeneous nephrogram and perinephric edema on the right without stone or convincing evidence of obstructive uropathy. Right pyelonephritis is suspected. 2. Large stone in an otherwise normal-appearing gallbladder. Marcelo Jung MD Objective Remarks GENERAL: No acute distress. SKIN: Warm and dry. No rash. Well-perfused HEAD: Atraumatic. Normocephalic. EYES: Pupils equal and round. No scleral icterus. No injection or drainage. ENT: No nasal bleeding or discharge. Mucous membranes pink and moist. NECK: Trachea midline. No JVD. CARDIOVASCULAR: Regular rate and rhythm. S1, S2. No S4. Grade 1 systolic murmur appreciated. RESPIRATORY: No accessory muscle use. Clear to auscultation. Breath sounds equal bilaterally. GASTROINTESTINAL: Abdomen soft, nontender, nondistended. MUSCULOSKELETAL: Extremities without significant peripheral edema. No obvious deformities. NEUROLOGICAL: Awake and alert. No obvious cranial nerve deficits. Motor grossly within normal limits. Five out of 5 muscle strength in the arms and legs. Normal speech. PSYCHIATRIC: Appropriate mood and affect; insight and judgment normal. Medications and IVs Current Medications Medications (Trade) Dose Ordered Sig/Juma Route Start Time Stop Time Status Last Admin (NS Flush) 2 ml UNSCH PRN IV FLUSH 08/08/16 06:15 (NS Flush) 2 ml BID IV FLUSH 08/08/16 09:00 08/10/16 19:52 (Tylenol) 650 mg Q6H PRN PO 08/08/16 06:15 08/09/16 20:00 ([place] 5-325 Mg) 1 tab Q4H PRN PO 08/08/16 06:15 (Morphine Inj) 2 mg Q2H PRN IV 08/08/16 06:15 (Protonix) 40 mg DAILY PO 08/08/16 09:00 08/11/16 09:15 (Zofran Inj) 4 mg Q6H PRN IV 08/08/16 06:15 (Colace) 100 mg BID PO 08/08/16 09:00 08/10/16 19:52 (Senokot) 17.2 mg Q12H PRN PO 08/08/16 06:15 (Lovenox Inj) 40 mg Q24H SQ 08/08/16 09:00 08/11/16 09:15 Miscellaneous Information 1 Q361D XX 08/08/16 06:15 (Chlorhexidine 2% Cloth) 3 pack Taper DAILY@04 TOP 08/09/16 04:00 08/05/17 03:59 08/10/16 01:32 Chlorhexidine Gluconate 3 pack 3 pack UNSCH PRN TOP 08/08/16 06:15 (Cardizem Inj/NS Inj) 125 ml @ 0 mls/hr TITRATE IV 08/09/16 18:00 08/10/16 09:00 (Aspirin Chew) 81 mg DAILY CHEW 08/10/16 10:45 08/11/16 09:15 Guaifenesin 600 mg 600 mg BID PO 08/10/16 21:00 08/11/16 09:15 (Cipro 400 Mg Premix) 200 ml @ 200 mls/hr Q12H IV 08/10/16 22:00 08/11/16 09:19 (Cardizem) 45 mg QID PO 08/11/16 13:00 UNV A/P Problem List: (1) Osteoarthritis of right knee ICD Code: M17.9 Status: Acute (2) Pyelonephritis ICD Code: N12 Status: Acute (3) Narrow complex tachycardia ICD Code: I47.1 Status: Acute (4) Emphysematous pyelonephritis of right kidney ICD Code: N12 Status: Acute (5) Hypokalemia ICD Code: E87.6 Status: Acute (6) Hypophosphatemia ICD Code: E83.39 Status: Acute (7) Leukocytosis ICD Code: D72.829 Status: Acute (8) Normocytic anemia ICD Code: D64.9 Status: Acute (9) SIRS (systemic inflammatory response syndrome) ICD Code: R65.10 Status: Acute Assessment and Plan Narrow complex tachycardia/ A fib Currently off diltiazem drip that was started in the emergency room. TSH within normal limits. Echocardiogram unremarkable. CHADS VASc score 3 but the patient do not want to start blood thinners. - continue Cardizem and adjust as needed. Increased to 45 mg 08/11. - telemetry. - follow up with cardiology. Dyspnea CT chest unremarkable. Pulmonology consult appreciated. May be s/t anemia. - continue Oxygen to keep saturation over 92%, Bronchodilators, mucolytics and Incentive spirometry. - anemia work-up. Right Pyelonephritis Blood cultures positive for E Coli. ID and urology consults appreciated. - continue IV Cipro per ID. PPx: SCDs/ Lovenox. Discharge Planning Transfer to the floor. Problem Qualifiers (1) Osteoarthritis of right knee: Qualified Code: M17.11 - Osteoarthritis of right knee, unspecified osteoarthritis type (2) Leukocytosis: Qualified Code: D72.825 - Bandemia Christian Tobin DO Aug 11, 2016 10:34
[2016-08-11] MEDS ORDERED: PILL SPLITTER OTHER PRN (11:30)
--- NOTE | 2016-08-11 11:31 | PD.CARD.PN ---
Subjective Subjective Remarks No chest pain, mild shortness of breath One episode of narrow complex tachycardia this am consistent with Afib with RVR Objective Medications Current Medications Medications (Trade) Dose Ordered Sig/Juma Route Start Time Stop Time Status Last Admin (NS Flush) 2 ml UNSCH PRN IV FLUSH 08/08/16 06:15 (NS Flush) 2 ml BID IV FLUSH 08/08/16 09:00 08/10/16 19:52 (Tylenol) 650 mg Q6H PRN PO 08/08/16 06:15 08/09/16 20:00 ([place] 5-325 Mg) 1 tab Q4H PRN PO 08/08/16 06:15 (Morphine Inj) 2 mg Q2H PRN IV 08/08/16 06:15 (Protonix) 40 mg DAILY PO 08/08/16 09:00 08/11/16 09:15 (Zofran Inj) 4 mg Q6H PRN IV 08/08/16 06:15 (Colace) 100 mg BID PO 08/08/16 09:00 08/10/16 19:52 (Senokot) 17.2 mg Q12H PRN PO 08/08/16 06:15 (Lovenox Inj) 40 mg Q24H SQ 08/08/16 09:00 08/11/16 09:15 Miscellaneous Information 1 Q361D XX 08/08/16 06:15 (Chlorhexidine 2% Cloth) 3 pack Taper DAILY@04 TOP 08/09/16 04:00 08/05/17 03:59 08/10/16 01:32 Chlorhexidine Gluconate 3 pack 3 pack UNSCH PRN TOP 08/08/16 06:15 (Cardizem Inj/NS Inj) 125 ml @ 0 mls/hr TITRATE IV 08/09/16 18:00 08/10/16 09:00 (Aspirin Chew) 81 mg DAILY CHEW 08/10/16 10:45 08/11/16 09:15 Guaifenesin 600 mg 600 mg BID PO 08/10/16 21:00 08/11/16 09:15 (Cipro 400 Mg Premix) 200 ml @ 200 mls/hr Q12H IV 08/10/16 22:00 08/11/16 09:19 (Cardizem) 45 mg QID PO 08/11/16 13:00 UNV Vital Signs / I&O Vital Signs Date Time Temp Pulse Resp B/P Pulse Ox O2 Delivery O2 Flow Rate FiO2 08/11/16 10:00 93 08/11/16 08:00 98.1 90 22 119/64 95 08/11/16 08:00 90 08/11/16 06:00 109 08/11/16 04:00 85 08/11/16 04:00 98.4 85 37 133/70 92 08/11/16 02:00 83 08/11/16 00:00 98.6 81 25 127/64 97 08/11/16 00:00 81 08/10/16 22:00 95 08/10/16 22:00 95 08/10/16 21:58 97 Nasal Cannula 2.00 08/10/16 20:00 100 08/10/16 20:00 97.6 100 29 133/74 97 08/10/16 19:00 97 Nasal Cannula 2.00 08/10/16 16:00 98.0 98 20 120/81 95 08/10/16 15:00 100 08/10/16 12:00 98.1 97 19 121/60 95 I/O 08/10/16 08/10/16 08/10/16 08/11/16 08/11/16 08/11/16 07:00 15:00 23:00 07:00 15:00 23:00 Intake Total 599 ml 949 ml 1047 ml 589 ml Output Total 700 ml 675 ml Balance -101 ml 949 ml 1047 ml -86 ml Intake Oral 480 ml 120 ml 120 ml IV Total 539 ml 469 ml 927 ml 469 ml Other 60 ml Output Urine Total 700 ml 675 ml # Voids 4 3 2 # Bowel Movements 0 0 1 0 Physical Exam GENERAL: NAD, AAOx3 SKIN: Warm and dry. HEAD: Atraumatic. Normocephalic. EYES: Pupils equal and round. No scleral icterus. No injection or drainage. ENT: No nasal bleeding or discharge. Mucous membranes pink and moist. NECK: Trachea midline. No JVD. CARDIOVASCULAR: Regular rate and rhythm. RESPIRATORY: No accessory muscle use. Minimal crackles right base GASTROINTESTINAL: Abdomen soft, non-tender, nondistended. Hepatic and splenic margins not palpable. MUSCULOSKELETAL: Extremities without clubbing, cyanosis, or edema. No obvious deformities. NEUROLOGICAL: Awake and alert. No obvious cranial nerve deficits. Motor grossly within normal limits. Five out of 5 muscle strength in the arms and legs. Normal speech. PSYCHIATRIC: Appropriate mood and affect; insight and judgment normal. Laboratory Laboratory Tests Test 08/08/16 08/08/16 08/09/16 08/10/16 18:00 20:56 03:14 03:36 Nasal Screen MRSA (PCR) NEGATIVE (NEGATIVE) Sodium Level 144 MEQ/L 145 MEQ/L 146 MEQ/L (136-145) (136-145) (136-145) Potassium Level 3.9 MEQ/L 3.8 MEQ/L 3.6 MEQ/L (3.5-5.1) (3.5-5.1) (3.5-5.1) Chloride Level 110 MEQ/L 113 MEQ/L 113 MEQ/L (98-107) (98-107) (98-107) Carbon Dioxide Level 25.6 MEQ/L 24.6 MEQ/L 25.1 MEQ/L (21.0-32.0) (21.0-32.0) (21.0-32.0) Anion Gap 8 MEQ/L (5-15) 7 MEQ/L (5-15) 8 MEQ/L (5-15) Blood Urea Nitrogen 12 MG/DL (7-18) 12 MG/DL (7-18) 8 MG/DL (7-18) Creatinine 0.73 MG/DL 0.63 MG/DL 0.53 MG/DL (0.50-1.00) (0.50-1.00) (0.50-1.00) Estimat Glomerular Filtration 77 ML/MIN (>89) 91 ML/MIN (>89) 111 ML/MIN Rate (>89) Random Glucose 134 MG/DL 95 MG/DL 93 MG/DL (74-106) (74-106) (74-106) Calcium Level 8.0 MG/DL 8.0 MG/DL 8.3 MG/DL (8.5-10.1) (8.5-10.1) (8.5-10.1) White Blood Count 8.1 TH/MM3 5.3 TH/MM3 (4.0-11.0) (4.0-11.0) Red Blood Count 3.36 MIL/MM3 3.35 MIL/MM3 (4.00-5.30) (4.00-5.30) Hemoglobin 9.1 GM/DL 9.2 GM/DL (11.6-15.3) (11.6-15.3) Hematocrit 27.1 % 26.6 % (35.0-46.0) (35.0-46.0) Mean Corpuscular Volume 80.9 FL 79.3 FL (80.0-100.0) (80.0-100.0) Mean Corpuscular Hemoglobin 27.2 PG 27.6 PG (27.0-34.0) (27.0-34.0) Mean Corpuscular Hemoglobin 33.7 % 34.8 % Concent (32.0-36.0) (32.0-36.0) Red Cell Distribution Width 15.3 % 15.7 % (11.6-17.2) (11.6-17.2) Platelet Count 179 TH/MM3 200 TH/MM3 (150-450) (150-450) Mean Platelet Volume 8.4 FL 8.3 FL (7.0-11.0) (7.0-11.0) Neutrophils (%) (Auto) 69.1 % 63.1 % (16.0-70.0) (16.0-70.0) Lymphocytes (%) (Auto) 12.1 % 18.5 % (9.0-44.0) (9.0-44.0) Monocytes (%) (Auto) 17.4 % 16.1 % (0.0-8.0) (0.0-8.0) Eosinophils (%) (Auto) 0.6 % (0.0-4.0) 1.5 % (0.0-4.0) Basophils (%) (Auto) 0.8 % (0.0-2.0) 0.8 % (0.0-2.0) Neutrophils # (Auto) 5.6 TH/MM3 3.3 TH/MM3 (1.8-7.7) (1.8-7.7) Lymphocytes # (Auto) 1.0 TH/MM3 1.0 TH/MM3 (1.0-4.8) (1.0-4.8) Monocytes # (Auto) 1.4 TH/MM3 0.9 TH/MM3 (0-0.9) (0-0.9) Eosinophils # (Auto) 0.1 TH/MM3 0.1 TH/MM3 (0-0.4) (0-0.4) Basophils # (Auto) 0.1 TH/MM3 0.0 TH/MM3 (0-0.2) (0-0.2) CBC Comment DIFF FINAL DIFF FINAL Differential Comment Prothrombin Time 10.8 SEC (9.8-11.6) Prothromb Time International 1.0 RATIO Ratio Activated Partial 32.8 SEC Thromboplast Time (24.3-30.1) Lactic Acid Level 0.9 mmol/L (0.4-2.0) Phosphorus Level 2.5 MG/DL (2.5-4.9) Magnesium Level 2.2 MG/DL (1.5-2.5) Total Bilirubin 0.4 MG/DL (0.2-1.0) Aspartate Amino Transf 27 U/L (15-37) (AST/SGOT) Alanine Aminotransferase 28 U/L (10-53) (ALT/SGPT) Alkaline Phosphatase 175 U/L (45-117) Total Protein 5.5 GM/DL (6.4-8.2) Albumin 2.1 GM/DL (3.4-5.0) Assessment and Plan Problem List: (1) Sepsis (2) Emphysematous pyelonephritis of right kidney (3) Narrow complex tachycardia (4) Atrial fibrillation, new onset Assessment and Plan 1) Will increase Cardizem to 60mg QID, can be transferred to long acting on discharge 2) EF 60-65%, trace AI 3) One dose of IV Lasix today, CHF most likely due to elevated heart rates previously 4) Does not want ischemic evaluation at this time, will consider in the outpatient setting 5) Does not want anticoagulation for afib, will continue on ASA 81mg Gregory Salmeron DO Aug 11, 2016 11:31
[2016-08-11] MEDS ORDERED: FUROSEMIDE 20 MG/2 ML VIAL IV PUSH ONE (11:45)
[2016-08-11 12:50] LABS: FERRITIN 233 NG/ML (8-252); TRANSFERRIN IRON PROFILE 158 MG/DL (200-360)
[2016-08-11] MEDS ORDERED: DILTIAZEM HCL 30 MG TAB PO SCH (13:00)
[2016-08-11] MEDS: DILTIAZEM HCL 60 MG TAB PO SCH ×3 (13:35→20:20)
--- NOTE | 2016-08-11 19:47 | HHI.PR ---
Subjective Remarks 81 YOWF with recurrent UTI, sepsis, pulm congestion had episode of AF with RVR Feels much betetr Weaned to RA Objective Vital Signs Vital Signs Date Time Temp Pulse Resp B/P Pulse Ox O2 Delivery O2 Flow Rate FiO2 08/11/16 18:00 86 08/11/16 16:45 96.8 99 20 120/74 96 08/11/16 16:00 98.6 96 20 124/73 93 08/11/16 16:00 86 08/11/16 14:00 87 08/11/16 12:00 98.0 88 21 114/64 97 08/11/16 12:00 88 08/11/16 10:00 93 08/11/16 08:00 98.1 90 22 119/64 95 08/11/16 08:00 90 08/11/16 06:00 109 08/11/16 04:00 85 08/11/16 04:00 98.4 85 37 133/70 92 08/11/16 02:00 83 08/11/16 00:00 98.6 81 25 127/64 97 08/11/16 00:00 81 08/10/16 22:00 95 08/10/16 22:00 95 08/10/16 21:58 97 Nasal Cannula 2.00 08/10/16 20:00 100 08/10/16 20:00 97.6 100 29 133/74 97 I/O 08/10/16 08/10/16 08/10/16 08/11/16 08/11/16 08/11/16 07:00 15:00 23:00 07:00 15:00 23:00 Intake Total 599 ml 949 ml 1047 ml 589 ml 1577 ml Output Total 700 ml 675 ml Balance -101 ml 949 ml 1047 ml -86 ml 1577 ml Intake Oral 480 ml 120 ml 120 ml 720 ml IV Total 539 ml 469 ml 927 ml 469 ml 857 ml Other 60 ml Output Urine Total 700 ml 675 ml # Voids 4 3 2 8 # Bowel Movements 0 0 1 0 1 Result Diagram: 08/10/1633508/10/16335 Objective Remarks GENERAL: MBMN Wf,NAD SKIN: Warm and dry. HEAD: Normocephalic. EYES: No scleral icterus. No injection or drainage. NECK: Supple, trachea midline. No JVD or lymphadenopathy. CARDIOVASCULAR: Regular rate and rhythm without murmurs, gallops, or rubs. RESPIRATORY: Breath sounds equal bilaterally. No accessory muscle use. GASTROINTESTINAL: Abdomen soft, non-tender, nondistended. MUSCULOSKELETAL: No cyanosis, or edema. BACK: Nontender without obvious deformity. No CVA tenderness. A/P Assessment and Plan Pulm congestion improved AF With RVR Sepsis UTI PLAN: Abx per ID diurease Stable on RA Vishnu Cespedes MD Aug 11, 2016 19:47
[2016-08-12] VITALS (10 sets, daily range): BP systolic 117–124; BP diastolic 55–75; PULSE 80–98; RESP 16–20; TEMP 97.1–99.1; O2SAT 92–97
[2016-08-12] MEDS: CHLORHEXIDINE GLUCONATE 2 % 1 PACK (2 CLOTHS) TOP SCH (03:16)
[2016-08-12] MEDS: RESP: IPRATROPIUM 0.5 MG/2.5 ML NEB NEB SCH ×4 (04:57→21:35)
[2016-08-12 07:50] LABS: HEMATOCRIT 29.6 % (35.0-46.0); MEAN CELL VOLUME 78.2 FL (80.0-100.0); MEAN CORPUSCULAR HEMOGLOBIN 26.6 PG (27.0-34.0); PLATELET COUNT 305 TH/MM3 (150-450); RED BLOOD COUNT 3.78 MIL/MM3 (4.00-5.30); RED CELL DISTRIBUTION WIDTH 15.4 % (11.6-17.2); REVIEW FLAG FINAL; WHITE BLOOD COUNT 5.7 TH/MM3 (4.0-11.0)
[2016-08-12 08:18] LABS: BICARBONATE 31.2 MEQ/L (21.0-32.0); MAGNESIUM 1.8 MG/DL (1.5-2.5); POTASSIUM 3.1 MEQ/L (3.5-5.1)
[2016-08-12] MEDS: SODIUM CHLORIDE 0.9% FLUSH 5 ML FLUSH IV FLUSH SCH ×2 (08:40→21:28)
[2016-08-12] MEDS: guaiFENesin E.R. 600 MG TAB PO SCH ×2 (08:40→21:27)
[2016-08-12] MEDS: DOCUSATE SODIUM 100 MG CAP PO SCH ×2 (08:40→21:27)
[2016-08-12] MEDS: ENOXAPARIN SODIUM 40 MG/0.4 ML SYRINGE SQ SCH (08:40)
[2016-08-12] MEDS: DILTIAZEM HCL 60 MG TAB PO SCH ×4 (08:40→21:27)
[2016-08-12] MEDS: ASPIRIN 81 MG CHEW TAB CHEW SCH (08:40)
[2016-08-12] MEDS: PANTOPRAZOLE SOD 40 MG DELAYED RELEASE TAB PO SCH (08:40)
[2016-08-12] MEDS: CIPROFLOXACIN 400 MG PREMIX 200 ML IV SCH (08:41)
[2016-08-12] MEDS: POTASSIUM CHLORIDE 20 MEQ CONTROLLED RELEASE TAB PO SCH ×2 (13:51→18:23)
--- NOTE | 2016-08-12 15:52 | HHI.IDPN ---
Subjective Subjective Remarks doing better no diarrhea no fever Antibiotics cipro Allergies: Coded Allergies: Amoxicillin (Verified Allergy, Severe, Nausea/Vomiting, 08/07/16) Objective . Vital Signs Date Time Temp Pulse Resp B/P Pulse Ox O2 Delivery O2 Flow Rate FiO2 08/12/16 12:00 98.0 84 18 120/75 96 08/12/16 10:35 97 Nasal Cannula 21 08/12/16 08:59 Room Air 2.00 08/12/16 08:00 97.8 92 20 124/69 95 Manual Cuff/Palpation 08/12/16 07:29 80 08/12/16 04:00 97.1 84 16 117/64 97 08/12/16 00:00 97.6 83 18 124/70 94 08/11/16 23:44 90 08/11/16 20:25 Room Air 08/11/16 20:25 88 08/11/16 20:00 97.1 94 18 128/69 94 08/11/16 18:00 86 08/11/16 16:45 96.8 99 20 120/74 96 08/11/16 16:00 98.6 96 20 124/73 93 08/11/16 16:00 86 08/11/16 08/11/16 08/12/16 15:00 23:00 07:00 Intake Total 1577 ml 240 ml Balance 1577 ml 240 ml Intake Oral 720 ml 240 ml IV Total 857 ml # Voids 8 1 2 # Bowel Movements 1 . Laboratory Tests Test 08/12/16 06:44 White Blood Count 5.7 TH/MM3 Red Blood Count 3.78 MIL/MM3 Hemoglobin 10.1 GM/DL Hematocrit 29.6 % Mean Corpuscular Volume 78.2 FL Mean Corpuscular Hemoglobin 26.6 PG Mean Corpuscular Hemoglobin 34.0 % Concent Red Cell Distribution Width 15.4 % Platelet Count 305 TH/MM3 Mean Platelet Volume 7.7 FL Laboratory Tests Test 08/11/16 08/12/16 11:42 06:44 Iron Level 34 MCG/DL Total Iron Binding Capacity 221 MCG/DL Percent Iron Saturation 15.4 % Ferritin 233 NG/ML Vitamin B12 Level 446 PG/ML Folate GREATER THAN 20.0 NG/ML Sodium Level 143 MEQ/L Potassium Level 3.1 MEQ/L Chloride Level 102 MEQ/L Carbon Dioxide Level 31.2 MEQ/L Anion Gap 10 MEQ/L Blood Urea Nitrogen 10 MG/DL Creatinine 0.56 MG/DL Estimat Glomerular Filtration 104 ML/MIN Rate Random Glucose 89 MG/DL Calcium Level 8.5 MG/DL Magnesium Level 1.8 MG/DL Imaging Last Impressions Chest CT 08/07/16 1756 Signed Impressions: Service Date/Time: Sunday, August 07, 2016 19:28 - CONCLUSION: No acute process. Marcelo Jung MD Chest X-Ray 08/07/16 1728 Signed Impressions: Service Date/Time: Sunday, August 07, 2016 17:50 - CONCLUSION: No evidence of acute cardiopulmonary disease. Marcelo Jung MD Abdomen/Pelvis CT 08/07/16 0000 Signed Impressions: Service Date/Time: Sunday, August 07, 2016 19:28 - CONCLUSION: 1. Heterogeneous nephrogram and perinephric edema on the right without stone or convincing evidence of obstructive uropathy. Right pyelonephritis is suspected. 2. Large stone in an otherwise normal-appearing gallbladder. Marcelo Jung MD Physical Exam CONSTITUTIONAL/GENERAL: This is an adequately nourished patient, in no apparent distress. SKIN: No jaundice, rashes, or lesions. Skin temperature appropriate. Not diaphoretic. ENT: Oral mucosae without visible erythema, exudates, masses, or lesions. CARDIOVASCULAR: Regular rate and rhythm without murmurs, gallops, or rubs. No JVD. Peripheral pulses symmetric. RESPIRATORY/CHEST: Symmetric, unlabored respirations. Clear to auscultation. Breath sounds equal bilaterally. No wheezes, rales, or rhonchi. GASTROINTESTINAL: Abdomen soft, non-tender, + moerately distended. No hepato- splenomegaly, or palpable masses. No guarding. Bowel sounds present. GENITOURINARY: Without palpable bladder distension. No CVA tenderness b/l MUSCULOSKELETAL: Extremities without clubbing, cyanosis, or edema. NEUROLOGICAL: Awake and alert. Non focal Assessment & Plan Remarks R side pyelonephritis, E.coli - improving E.coli sepsis [place] S - resolution of leukocytosis and fever - repeat BC neg @ 3 days Recurrent UTIs change cipro to PO x 10 more days agree with fu by urologist as OP Haylee Montez RN, MD Aug 12, 2016 15:52
--- NOTE | 2016-08-12 16:41 | HHI.PR ---
Subjective Remarks The patient had a list of questions which were answered. She said she was feeling a little bit better. She said she was told she had anemia a while ago and she says she eats poorly. She has noticed that her stools have been dark lately. No other acute complaints. Discussed with nursing. Objective Vitals Vital Signs Date Time Temp Pulse Resp B/P Pulse Ox O2 Delivery O2 Flow Rate FiO2 08/12/16 12:00 98.0 84 18 120/75 96 08/12/16 10:35 97 Nasal Cannula 21 08/12/16 08:59 Room Air 2.00 08/12/16 08:00 97.8 92 20 124/69 95 Manual Cuff/Palpation 08/12/16 07:29 80 08/12/16 04:00 97.1 84 16 117/64 97 08/12/16 00:00 97.6 83 18 124/70 94 08/11/16 23:44 90 08/11/16 20:25 Room Air 08/11/16 20:25 88 08/11/16 20:00 97.1 94 18 128/69 94 08/11/16 18:00 86 08/11/16 16:45 96.8 99 20 120/74 96 I/O 08/11/16 08/11/16 08/11/16 08/12/16 08/12/16 08/12/16 07:00 15:00 23:00 07:00 15:00 23:00 Intake Total 589 ml 1577 ml 240 ml 960 ml Output Total 675 ml 1050 ml Balance -86 ml 1577 ml 240 ml -90 ml Intake Oral 120 ml 720 ml 240 ml 960 ml IV Total 469 ml 857 ml Output Urine Total 675 ml 1050 ml # Voids 2 8 1 2 # Bowel Movements 0 1 2 Result Diagram: 08/12/16 0644 08/12/16 0644 Imaging Last Impressions Chest CT 08/07/16 1756 Signed Impressions: Service Date/Time: Sunday, August 07, 2016 19:28 - CONCLUSION: No acute process. Marcelo Jung MD Chest X-Ray 08/07/16 1728 Signed Impressions: Service Date/Time: Sunday, August 07, 2016 17:50 - CONCLUSION: No evidence of acute cardiopulmonary disease. Marcelo Jung MD Abdomen/Pelvis CT 08/07/16 0000 Signed Impressions: Service Date/Time: Sunday, August 07, 2016 19:28 - CONCLUSION: 1. Heterogeneous nephrogram and perinephric edema on the right without stone or convincing evidence of obstructive uropathy. Right pyelonephritis is suspected. 2. Large stone in an otherwise normal-appearing gallbladder. Marcelo Jung MD Objective Remarks GENERAL: No acute distress. SKIN: Warm and dry. No rash. Well-perfused HEAD: Atraumatic. Normocephalic. EYES: Pupils equal and round. No scleral icterus. No injection or drainage. ENT: No nasal bleeding or discharge. Mucous membranes pink and moist. NECK: Trachea midline. No JVD. CARDIOVASCULAR: Regular rate and rhythm. S1, S2. No S4. Grade 1 systolic murmur appreciated. RESPIRATORY: No accessory muscle use. Clear to auscultation. Breath sounds equal bilaterally. GASTROINTESTINAL: Abdomen soft, nontender, nondistended. MUSCULOSKELETAL: Extremities without significant peripheral edema. No obvious deformities. NEUROLOGICAL: Awake and alert. No obvious cranial nerve deficits. Motor grossly within normal limits. Five out of 5 muscle strength in the arms and legs. Normal speech. PSYCHIATRIC: Appropriate mood and affect; insight and judgment normal. Medications and IVs Current Medications Medications (Trade) Dose Ordered Sig/Juma Route Start Time Stop Time Status Last Admin (NS Flush) 2 ml UNSCH PRN IV FLUSH 08/08/16 06:15 (NS Flush) 2 ml BID IV FLUSH 08/08/16 09:00 08/12/16 08:40 (Tylenol) 650 mg Q6H PRN PO 08/08/16 06:15 08/09/16 20:00 ([place] 5-325 Mg) 1 tab Q4H PRN PO 08/08/16 06:15 (Morphine Inj) 2 mg Q2H PRN IV 08/08/16 06:15 (Protonix) 40 mg DAILY PO 08/08/16 09:00 08/12/16 08:40 (Zofran Inj) 4 mg Q6H PRN IV 08/08/16 06:15 (Colace) 100 mg BID PO 08/08/16 09:00 08/12/16 08:40 (Senokot) 17.2 mg Q12H PRN PO 08/08/16 06:15 08/12/16 08:49 (Lovenox Inj) 40 mg Q24H SQ 08/08/16 09:00 08/12/16 08:40 Miscellaneous Information 1 Q361D XX 08/08/16 06:15 (Chlorhexidine 2% Cloth) 3 pack Taper DAILY@04 TOP 08/09/16 04:00 08/05/17 03:59 08/12/16 03:16 (Chlorhexidine 2% Cloth) 3 pack UNSCH PRN TOP 08/08/16 06:15 (Aspirin Chew) 81 mg DAILY CHEW 08/10/16 10:45 08/12/16 08:40 (Mucinex Er) 600 mg BID PO 08/10/16 21:00 08/12/16 08:40 (Pill Splitter) 1 ea UNSCH PRN OTHER 08/11/16 11:30 (Cardizem) 60 mg QID PO 08/11/16 13:00 08/12/16 13:52 (KCl) 40 meq Q4H PO 08/12/16 13:30 08/12/16 17:31 08/12/16 13:51 (Cipro) 500 mg Q12HR PO 08/12/16 21:00 08/22/16 20:59 A/P Problem List: (1) Osteoarthritis of right knee ICD Code: M17.9 Status: Acute (2) Pyelonephritis ICD Code: N12 Status: Acute (3) Narrow complex tachycardia ICD Code: I47.1 Status: Acute (4) Emphysematous pyelonephritis of right kidney ICD Code: N12 Status: Acute (5) Hypokalemia ICD Code: E87.6 Status: Acute (6) Hypophosphatemia ICD Code: E83.39 Status: Acute (7) Leukocytosis ICD Code: D72.829 Status: Acute (8) Normocytic anemia ICD Code: D64.9 Status: Acute (9) SIRS (systemic inflammatory response syndrome) ICD Code: R65.10 Status: Acute Assessment and Plan Narrow complex tachycardia/ A fib Currently off diltiazem drip that was started in the emergency room. TSH within normal limits. Echocardiogram unremarkable. CHADS VASc score 3 but the patient does not want to start blood thinners. - continue Cardizem and adjust as needed. Increased to 60 mg 08/11. Rate better controlled. - telemetry. - follow up with cardiology. Dyspnea CT chest unremarkable. Pulmonology consult appreciated. May be s/t anemia. - continue Oxygen to keep saturation over 92%, Bronchodilators, mucolytics and Incentive spirometry. Right Pyelonephritis Blood cultures positive for E Coli. ID and urology consults appreciated. - continue Cipro per ID. - outpt follow-up with urology. Anemia Appears to be s/t chronic disease. The pt reports dark stools. - Hemoccult pending. - start ferrous sulfate. Hypokalemia May be s/t poor PO intake. - replete and monitor. PPx: SCDs/ Lovenox. Discharge Planning Anticipate d/c with [facility] in 1-2 days. Problem Qualifiers (1) Osteoarthritis of right knee: Qualified Code: M17.11 - Osteoarthritis of right knee, unspecified osteoarthritis type (2) Leukocytosis: Qualified Code: D72.825 - Bandemia Christian Tobin DO Aug 12, 2016 16:41
--- NOTE | 2016-08-12 16:42 | HHI.FF ---
Face to Face Verification Diagnosis: (1) Atrial fibrillation, new onset (2) Sepsis (3) Emphysematous pyelonephritis of right kidney (4) Normocytic anemia Physical Therapy Order: Evaluate and Treat, Improve ambulation, Strength and gait training Home Health Nursing Order: Medical education Signs/symptoms of disease process Oxygen administration education Medication education-adverse effect Nursing assessment with vital signs I have seen patient Marianne Hill on 08/12/16. My clinical findings support the need for the requested home health care services because: Ltd mobility - disease progression Patient has SOB Deconditioned w/ increased weakness I certify that my clinical findings support that this patient is homebound because: Unsafe to leave home unassisted Christian Tobin DO Aug 12, 2016 16:42
--- NOTE | 2016-08-12 17:47 | PD.CARD.PN ---
Subjective Subjective Remarks Patient seen earlier No chest pain, no shortness of breath Telemetry controlled Afib mostly Objective Medications Current Medications Medications (Trade) Dose Ordered Sig/Juma Route Start Time Stop Time Status Last Admin (NS Flush) 2 ml UNSCH PRN IV FLUSH 08/08/16 06:15 (NS Flush) 2 ml BID IV FLUSH 08/08/16 09:00 08/12/16 08:40 (Tylenol) 650 mg Q6H PRN PO 08/08/16 06:15 08/09/16 20:00 ([place] 5-325 Mg) 1 tab Q4H PRN PO 08/08/16 06:15 (Morphine Inj) 2 mg Q2H PRN IV 08/08/16 06:15 (Protonix) 40 mg DAILY PO 08/08/16 09:00 08/12/16 08:40 (Zofran Inj) 4 mg Q6H PRN IV 08/08/16 06:15 (Colace) 100 mg BID PO 08/08/16 09:00 08/12/16 08:40 (Senokot) 17.2 mg Q12H PRN PO 08/08/16 06:15 08/12/16 08:49 (Lovenox Inj) 40 mg Q24H SQ 08/08/16 09:00 08/12/16 08:40 Miscellaneous Information 1 Q361D XX 08/08/16 06:15 (Chlorhexidine 2% Cloth) 3 pack Taper DAILY@04 TOP 08/09/16 04:00 08/05/17 03:59 08/12/16 03:16 (Chlorhexidine 2% Cloth) 3 pack UNSCH PRN TOP 08/08/16 06:15 (Aspirin Chew) 81 mg DAILY CHEW 08/10/16 10:45 08/12/16 08:40 (Mucinex Er) 600 mg BID PO 08/10/16 21:00 08/12/16 08:40 (Pill Splitter) 1 ea UNSCH PRN OTHER 08/11/16 11:30 (Cardizem) 60 mg QID PO 08/11/16 13:00 08/12/16 13:52 (Cipro) 500 mg Q12HR PO 08/12/16 21:00 08/22/16 20:59 (Ferrous Sulfate) 325 mg BID PO 08/12/16 21:00 Vital Signs / I&O Vital Signs Date Time Temp Pulse Resp B/P Pulse Ox O2 Delivery O2 Flow Rate FiO2 08/12/16 17:05 3.00 08/12/16 16:00 97.9 94 20 118/72 95 08/12/16 12:00 98.0 84 18 120/75 96 08/12/16 10:35 97 Nasal Cannula 21 08/12/16 08:59 Room Air 2.00 08/12/16 08:00 97.8 92 20 124/69 95 Manual Cuff/Palpation 08/12/16 07:29 80 08/12/16 04:00 97.1 84 16 117/64 97 08/12/16 00:00 97.6 83 18 124/70 94 08/11/16 23:44 90 08/11/16 20:25 Room Air 08/11/16 20:25 88 08/11/16 20:00 97.1 94 18 128/69 94 08/11/16 18:00 86 I/O 08/11/16 08/11/16 08/11/16 08/12/16 08/12/16 08/12/16 07:00 15:00 23:00 07:00 15:00 23:00 Intake Total 589 ml 1577 ml 240 ml 960 ml Output Total 675 ml 1050 ml 500 ml Balance -86 ml 1577 ml 240 ml -90 ml -500 ml Intake Oral 120 ml 720 ml 240 ml 960 ml IV Total 469 ml 857 ml Output Urine Total 675 ml 1050 ml 500 ml # Voids 2 8 1 2 # Bowel Movements 0 1 2 Physical Exam GENERAL: NAD, AAOx3 SKIN: Warm and dry. HEAD: Atraumatic. Normocephalic. EYES: Pupils equal and round. No scleral icterus. No injection or drainage. ENT: No nasal bleeding or discharge. Mucous membranes pink and moist. NECK: Trachea midline. No JVD. CARDIOVASCULAR: Regular rate and rhythm. RESPIRATORY: No accessory muscle use. Minimal crackles right base GASTROINTESTINAL: Abdomen soft, non-tender, nondistended. Hepatic and splenic margins not palpable. MUSCULOSKELETAL: Extremities without clubbing, cyanosis, or edema. No obvious deformities. NEUROLOGICAL: Awake and alert. No obvious cranial nerve deficits. Motor grossly within normal limits. Five out of 5 muscle strength in the arms and legs. Normal speech. PSYCHIATRIC: Appropriate mood and affect; insight and judgment normal. Laboratory Laboratory Tests Test 08/12/16 06:44 White Blood Count 5.7 TH/MM3 Red Blood Count 3.78 MIL/MM3 Hemoglobin 10.1 GM/DL Hematocrit 29.6 % Mean Corpuscular Volume 78.2 FL Mean Corpuscular Hemoglobin 26.6 PG Mean Corpuscular Hemoglobin 34.0 % Concent Red Cell Distribution Width 15.4 % Platelet Count 305 TH/MM3 Mean Platelet Volume 7.7 FL Sodium Level 143 MEQ/L Potassium Level 3.1 MEQ/L Chloride Level 102 MEQ/L Carbon Dioxide Level 31.2 MEQ/L Anion Gap 10 MEQ/L Blood Urea Nitrogen 10 MG/DL Creatinine 0.56 MG/DL Estimat Glomerular Filtration 104 ML/MIN Rate Random Glucose 89 MG/DL Calcium Level 8.5 MG/DL Magnesium Level 1.8 MG/DL Assessment and Plan Problem List: (1) Sepsis (2) Emphysematous pyelonephritis of right kidney (3) Narrow complex tachycardia (4) Atrial fibrillation, new onset Assessment and Plan 1) Continue Cardizem 60mg QID, can be transferred to long acting on discharge 2) EF 60-65%, trace AI 3) Does not want ischemic evaluation at this time, will consider in the outpatient setting 4) Does not want anticoagulation for afib, will continue on ASA 81mg 5) Will follow with me in the outpatient setting Gregory Salmeron DO Aug 12, 2016 17:47
[2016-08-12] MEDS: CIPROFLOXACIN 500 MG TAB PO SCH (21:27)
[2016-08-12] MEDS: FERROUS SULFATE 325 MG (65 MG ELEMENTAL IRON) TAB PO SCH (21:27)
--- NOTE | 2016-08-12 21:29 | HHI.PR ---
Subjective Remarks 81 YOWF with recurrent UTI, sepsis, pulm congestion had episode of AF with RVR Feels much betetr Objective Vital Signs Vital Signs Date Time Temp Pulse Resp B/P Pulse Ox O2 Delivery O2 Flow Rate FiO2 08/12/16 20:00 99.1 98 18 118/55 94 08/12/16 19:33 92 Nasal Cannula 3.00 08/12/16 17:05 3.00 08/12/16 16:00 97.9 94 20 118/72 95 08/12/16 12:00 98.0 84 18 120/75 96 08/12/16 10:35 97 Nasal Cannula 21 08/12/16 08:59 Room Air 2.00 08/12/16 08:00 97.8 92 20 124/69 95 Manual Cuff/Palpation 08/12/16 07:29 80 08/12/16 04:00 97.1 84 16 117/64 97 08/12/16 00:00 97.6 83 18 124/70 94 08/11/16 23:44 90 I/O 08/11/16 08/11/16 08/11/16 08/12/16 08/12/16 08/12/16 07:00 15:00 23:00 07:00 15:00 23:00 Intake Total 589 ml 1577 ml 240 ml 960 ml Output Total 675 ml 1050 ml 500 ml Balance -86 ml 1577 ml 240 ml -90 ml -500 ml Intake Oral 120 ml 720 ml 240 ml 960 ml IV Total 469 ml 857 ml Output Urine Total 675 ml 1050 ml 500 ml # Voids 2 8 1 2 # Bowel Movements 0 1 2 Result Diagram: 08/12/16 0644 08/12/16 0644 Objective Remarks GENERAL: MBMN Wf,NAD SKIN: Warm and dry. HEAD: Normocephalic. EYES: No scleral icterus. No injection or drainage. NECK: Supple, trachea midline. No JVD or lymphadenopathy. CARDIOVASCULAR: Regular rate and rhythm without murmurs, gallops, or rubs. RESPIRATORY: Breath sounds equal bilaterally. No accessory muscle use. GASTROINTESTINAL: Abdomen soft, non-tender, nondistended. MUSCULOSKELETAL: No cyanosis, or edema. BACK: Nontender without obvious deformity. No CVA tenderness. A/P Assessment and Plan Pulm congestion improved AF With RVR Sepsis UTI PLAN: Abx per ID diurease Stable on RA DC Plans underway Stable from Pulm stand point Vishnu Cespedes MD Aug 12, 2016 21:29
[2016-08-13] VITALS (8 sets, daily range): BP systolic 110–133; BP diastolic 56–66; PULSE 91–98; RESP 16–18; TEMP 96.7–97.9; O2SAT 92–97
[2016-08-13] MEDS: CHLORHEXIDINE GLUCONATE 2 % 1 PACK (2 CLOTHS) TOP SCH (03:02)
[2016-08-13] MEDS: RESP: IPRATROPIUM 0.5 MG/2.5 ML NEB NEB SCH ×3 (04:00→10:32)
[2016-08-13] MEDS ORDERED: OXYGENTANK NAS.CANULA (08:20)
[2016-08-13 08:32] LABS: BICARBONATE 28.7 MEQ/L (21.0-32.0); POTASSIUM 3.8 MEQ/L (3.5-5.1)
[2016-08-13 08:35] LABS: HEMATOCRIT 33.5 % (35.0-46.0); MEAN CELL VOLUME 79.6 FL (80.0-100.0); MEAN CORPUSCULAR HEMOGLOBIN 26.4 PG (27.0-34.0); MEAN CORPUSCULAR HGB CONC 33.2 % (32.0-36.0); PLATELET COUNT 365 TH/MM3 (150-450); RED BLOOD COUNT 4.21 MIL/MM3 (4.00-5.30); RED CELL DISTRIBUTION WIDTH 15.4 % (11.6-17.2); REVIEW FLAG FINAL; WHITE BLOOD COUNT 7.3 TH/MM3 (4.0-11.0)
[2016-08-13] MEDS: DILTIAZEM HCL 60 MG TAB PO SCH ×3 (09:39→16:23)
[2016-08-13] MEDS: CIPROFLOXACIN 500 MG TAB PO SCH (09:39)
[2016-08-13] MEDS: PANTOPRAZOLE SOD 40 MG DELAYED RELEASE TAB PO SCH (09:39)
[2016-08-13] MEDS: ENOXAPARIN SODIUM 40 MG/0.4 ML SYRINGE SQ SCH (09:39)
[2016-08-13] MEDS: ASPIRIN 81 MG CHEW TAB CHEW SCH (09:39)
[2016-08-13] MEDS: DOCUSATE SODIUM 100 MG CAP PO SCH (09:39)
[2016-08-13] MEDS: FERROUS SULFATE 325 MG (65 MG ELEMENTAL IRON) TAB PO SCH (09:39)
[2016-08-13] MEDS: guaiFENesin E.R. 600 MG TAB PO SCH (09:39)
[2016-08-13] MEDS: SODIUM CHLORIDE 0.9% FLUSH 5 ML FLUSH IV FLUSH SCH (09:40)
--- NOTE | 2016-08-13 10:30 | RADRPT ---
EXAM DATE/TIME: 08/13/2016 10:19 [place] COMPARISON: CHEST PA & LAT, March 25, 2015, 11:49. INDICATIONS : Dyspnea and shortness of breath. MEDICAL HISTORY : Carcinoma, breast. SURGICAL HISTORY : Mastectomy, left. ENCOUNTER: Initial ACUITY: 4 - 6 days PAIN SCORE: 0/10 LOCATION: Bilateral chest FINDINGS: The lungs are hyperinflated. There is basilar interstitial prominence with small bilateral effusions. Heart is normal in size. Perihilar mediastinal structures are unremarkable. CONCLUSION: COPD with mild pulmonary congestion. Darrion Tabares MD on August 13, 2016 at 10:28 Board Certified Radiologist. This report was verified electronically.
--- NOTE | 2016-08-13 13:49 | PD.CARD.PN ---
Subjective Subjective Remarks No chest pain, no shortness of breath, no palpitations Objective Medications Current Medications Medications (Trade) Dose Ordered Sig/Juma Route Start Time Stop Time Status Last Admin (NS Flush) 2 ml UNSCH PRN IV FLUSH 08/08/16 06:15 (NS Flush) 2 ml BID IV FLUSH 08/08/16 09:00 08/13/16 09:40 (Tylenol) 650 mg Q6H PRN PO 08/08/16 06:15 08/09/16 20:00 ([place] 5-325 Mg) 1 tab Q4H PRN PO 08/08/16 06:15 (Morphine Inj) 2 mg Q2H PRN IV 08/08/16 06:15 (Protonix) 40 mg DAILY PO 08/08/16 09:00 08/13/16 09:39 (Zofran Inj) 4 mg Q6H PRN IV 08/08/16 06:15 (Colace) 100 mg BID PO 08/08/16 09:00 08/13/16 09:39 (Senokot) 17.2 mg Q12H PRN PO 08/08/16 06:15 08/12/16 08:49 (Lovenox Inj) 40 mg Q24H SQ 08/08/16 09:00 08/13/16 09:39 Miscellaneous Information 1 Q361D XX 08/08/16 06:15 (Chlorhexidine 2% Cloth) 3 pack Taper DAILY@04 TOP 08/09/16 04:00 08/05/17 03:59 08/12/16 03:16 (Chlorhexidine 2% Cloth) 3 pack UNSCH PRN TOP 08/08/16 06:15 (Aspirin Chew) 81 mg DAILY CHEW 08/10/16 10:45 08/13/16 09:39 (Mucinex Er) 600 mg BID PO 08/10/16 21:00 08/13/16 09:39 (Pill Splitter) 1 ea UNSCH PRN OTHER 08/11/16 11:30 (Cardizem) 60 mg QID PO 08/11/16 13:00 08/13/16 11:54 (Cipro) 500 mg Q12HR PO 08/12/16 21:00 08/22/16 20:59 08/13/16 09:39 (Ferrous Sulfate) 325 mg BID PO 08/12/16 21:00 08/13/16 09:39 Vital Signs / I&O Vital Signs Date Time Temp Pulse Resp B/P Pulse Ox O2 Delivery O2 Flow Rate FiO2 08/13/16 12:42 97.6 91 16 118/62 92 08/13/16 11:56 Room Air 08/13/16 10:33 97 Nasal Cannula 21 08/13/16 09:58 97 Nasal Cannula 21 08/13/16 08:38 96.8 98 16 110/65 95 08/13/16 08:00 96 08/13/16 04:23 94 Nasal Cannula 2.00 08/13/16 04:00 96.7 96 18 133/66 94 08/13/16 00:00 97.9 94 18 115/56 94 08/12/16 21:30 Nasal Cannula 2.00 08/12/16 20:37 95 08/12/16 20:00 99.1 98 18 118/55 94 08/12/16 19:33 92 Nasal Cannula 3.00 08/12/16 17:05 3.00 08/12/16 16:00 97.9 94 20 118/72 95 I/O 08/12/16 08/12/16 08/12/16 08/13/16 08/13/16 08/13/16 07:00 15:00 23:00 07:00 15:00 23:00 Intake Total 240 ml 960 ml 480 ml Output Total 1050 ml 500 ml Balance 240 ml -90 ml -20 ml Intake Oral 240 ml 960 ml 480 ml Output Urine Total 1050 ml 500 ml # Voids 2 2 3 # Bowel Movements 2 1 Physical Exam GENERAL: NAD, AAOx3 SKIN: Warm and dry. HEAD: Atraumatic. Normocephalic. EYES: Pupils equal and round. No scleral icterus. No injection or drainage. ENT: No nasal bleeding or discharge. Mucous membranes pink and moist. NECK: Trachea midline. No JVD. CARDIOVASCULAR: Regular rate and rhythm. RESPIRATORY: No accessory muscle use. CTA B/L GASTROINTESTINAL: Abdomen soft, non-tender, nondistended. Hepatic and splenic margins not palpable. MUSCULOSKELETAL: Extremities without clubbing, cyanosis, or edema. No obvious deformities. NEUROLOGICAL: Awake and alert. No obvious cranial nerve deficits. Motor grossly within normal limits. Five out of 5 muscle strength in the arms and legs. Normal speech. PSYCHIATRIC: Appropriate mood and affect; insight and judgment normal. Laboratory Laboratory Tests Test 08/13/16 07:40 White Blood Count 7.3 TH/MM3 Red Blood Count 4.21 MIL/MM3 Hemoglobin 11.1 GM/DL Hematocrit 33.5 % Mean Corpuscular Volume 79.6 FL Mean Corpuscular Hemoglobin 26.4 PG Mean Corpuscular Hemoglobin 33.2 % Concent Red Cell Distribution Width 15.4 % Platelet Count 365 TH/MM3 Mean Platelet Volume 7.7 FL Sodium Level 140 MEQ/L Potassium Level 3.8 MEQ/L Chloride Level 102 MEQ/L Carbon Dioxide Level 28.7 MEQ/L Anion Gap 9 MEQ/L Blood Urea Nitrogen 15 MG/DL Creatinine 0.65 MG/DL Estimat Glomerular Filtration 88 ML/MIN Rate Random Glucose 101 MG/DL Calcium Level 8.8 MG/DL Magnesium Level 2.0 MG/DL Assessment and Plan Problem List: (1) Sepsis (2) Emphysematous pyelonephritis of right kidney (3) Narrow complex tachycardia (4) Atrial fibrillation, new onset Assessment and Plan 1) Continue Cardizem 60mg QID, can be transferred to long acting on discharge 2) EF 60-65%, trace AI 3) Does not want ischemic evaluation at this time, will consider in the outpatient setting 4) Does not want anticoagulation for afib, will continue on ASA 81mg 5) Will follow with me in the outpatient setting 6) X-ray with some pulmonary congestion, no clinical heart failure... will give one dose of Lasix IV Gregory Salmeron DO Aug 13, 2016 13:49
[2016-08-13] MEDS ORDERED: FUROSEMIDE 20 MG/2 ML VIAL IV PUSH ONE (14:00)
[2016-08-13] MEDS ORDERED: CIPR-9 PO (14:43)
[2016-08-13] MEDS ORDERED: FERR325T PO (14:43)
[2016-08-13] MEDS ORDERED: ASPI81TA11 PO (14:43)
[2016-08-13] MEDS ORDERED: DILT-64 PO (14:43)
--- NOTE | 2016-08-13 14:54 | HHI.DS ---
Discharge Summary Admission Date Aug 08, 2016 at 00:15 Discharge Date: Aug 13, 2016 Admitting Diagnosis pyelonephritis, svt (1) Osteoarthritis of right knee ICD Code: M17.9 Diagnosis: Principal (2) Pyelonephritis ICD Code: N12 Diagnosis: Principal (3) Narrow complex tachycardia ICD Code: I47.1 Diagnosis: Principal (4) Emphysematous pyelonephritis of right kidney ICD Code: N12 Diagnosis: Principal (5) Hypokalemia ICD Code: E87.6 Diagnosis: Principal (6) Hypophosphatemia ICD Code: E83.39 Diagnosis: Principal (7) Leukocytosis ICD Code: D72.829 Diagnosis: Principal (8) Normocytic anemia ICD Code: D64.9 Diagnosis: Principal (9) SIRS (systemic inflammatory response syndrome) ICD Code: R65.10 Diagnosis: Principal Procedures None. Brief History - From Admission 81-year-old female. Date of admission 08/07/2016. Past medical includes osteoarthritis. She recently has had surgery on right leg has had frequent urinary tract infections interim. She states she took Monistat" for this". She presents to [facility] with chills, vomiting, abdominal pain after being seen in urgent care. His last several days prior to admission.. At that facility. obstensively her chest x-ray showed pneumomediastinum per documentation and she had sinus tachycardia in the 120s. At this facility, CT chest and chest x-ray did not show pneumomediastinum here. She received 2 L normal saline for hypotension and urosepsis or urinary tract infections or pyelonephritis and received 35 mg total Cardizem's and started on a Cardizem drip at 2.5 mg an hour. And received potassium phosphorus supplementation.. Cisterna foot 5 AM. She is currently seen hemodynamically stable in ED. lactate was 1.2. CT abdomen pelvis revealed right pyelonephritis and cholelithiasis. CBC/BMP: 08/13/16 0740 08/13/16 0740 Significant Findings Laboratory Tests Test 08/11/16 08/12/16 08/13/16 11:42 06:44 07:40 Iron Level 34 MCG/DL (50-170) Total Iron Binding Capacity 221 MCG/DL (250-450) Percent Iron Saturation 15.4 % (20-50) Folate GREATER THAN 20.0 NG/ML (3.1-17.5) Red Blood Count 3.78 MIL/MM3 (4.00-5.30) Hemoglobin 10.1 GM/DL 11.1 GM/DL (11.6-15.3) (11.6-15.3) Hematocrit 29.6 % 33.5 % (35.0-46.0) (35.0-46.0) Mean Corpuscular Volume 78.2 FL 79.6 FL (80.0-100.0) (80.0-100.0) Mean Corpuscular Hemoglobin 26.6 PG 26.4 PG (27.0-34.0) (27.0-34.0) Potassium Level 3.1 MEQ/L (3.5-5.1) Estimat Glomerular Filtration 88 ML/MIN (>89) Rate Imaging Last Impressions Chest X-Ray 08/13/16 0000 Signed Impressions: Service Date/Time: July 10:19 - CONCLUSION: COPD with mild pulmonary congestion. Darrion Tabares MD Chest CT 08/07/16 1756 Signed Impressions: Service Date/Time: Sunday, August 07, 2016 19:28 - CONCLUSION: No acute process. Marcelo Jung MD Abdomen/Pelvis CT 08/07/16 0000 Signed Impressions: Service Date/Time: Sunday, August 07, 2016 19:28 - CONCLUSION: 1. Heterogeneous nephrogram and perinephric edema on the right without stone or convincing evidence of obstructive uropathy. Right pyelonephritis is suspected. 2. Large stone in an otherwise normal-appearing gallbladder. Marcelo Jung MD PE at Discharge GENERAL: No acute distress. SKIN: Warm and dry. No rash. Well-perfused HEAD: Atraumatic. Normocephalic. EYES: Pupils equal and round. No scleral icterus. No injection or drainage. ENT: No nasal bleeding or discharge. Mucous membranes pink and moist. NECK: Trachea midline. No JVD. CARDIOVASCULAR: Regular rate and rhythm. S1, S2. No S4. Grade 1 systolic murmur appreciated. RESPIRATORY: No accessory muscle use. Clear to auscultation. Breath sounds equal bilaterally. GASTROINTESTINAL: Abdomen soft, nontender, nondistended. MUSCULOSKELETAL: Extremities without significant peripheral edema. No obvious deformities. NEUROLOGICAL: Awake and alert. No obvious cranial nerve deficits. Motor grossly within normal limits. Five out of 5 muscle strength in the arms and legs. Normal speech. PSYCHIATRIC: Appropriate mood and affect; insight and judgment normal. Pt update on day of discharge The pt wanted to go home. She said she had pain in her left foot and is not sure why it is hurting her. She does not want home oxygen but she will use it if needed. Discussed with nursing and case management. Hospital Course Narrow complex tachycardia/ A fib Currently off diltiazem drip that was started in the emergency room. TSH within normal limits. Echocardiogram unremarkable. CHADS VASc score 3 but the patient does not want to start blood thinners. Cardiology was consulted. Cardizem was increased to 60 mg. Rate has been better controlled. She was monitored on telemetry. She will follow up with cardiology as an outpt. Dyspnea CT chest unremarkable. CXR with some pulmonary congestion and COPD. Pulmonology was consulted. The pt received Lasix, bronchodilators, mucolytics, incentive spirometry, oxygen and nebs as needed. She had a home oxygen walk test which indicated the need for home oxygen as her sats went down to 85% with ambulation. Case management assisted with home health care and home oxygen. Right sided pyelonephritis Blood cultures positive for E Coli. ID and urology were consulted. The pt will complete a course of Cipro per ID. She will have outpt follow-up with urology. Anemia The pt reports dark stools. Hemoccult pending. She will follow the results as an outpt. We started ferrous sulfate. Hemoglobin has been stable. Left foot pain The pt has a bruise on her left foot. She is unsure how she hurt her foot. She wanted to go home and did not want to pursue inpt imaging. She says she has a walker. She will be discharged with [facility] and will follow up with her PCP. Pt Condition on Discharge: Stable Discharge Disposition: Disch w/ Home Health Serv Discharge Time: > 30 minutes Discharge Instructions DIET: Follow Instructions for: Heart Healthy Diet Activities you can perform: Weight Bearing as Leonor Follow up Referrals: Cardiology - [address] Salmeron PCP Follow-up - 1 Week Pulmonology - 1 Week with Vishnu Cespedes MD Urology - 1 Week with Db Flores MD New Medications: Aspirin DR (Aspirin EC) 81 Mg Tabdr 81 MG PO DAILY Heart #30 Ref 0 TAB Diltiazem CD 24 HR (Diltiazem CD 24 HR) 240 Mg Caper 240 MG PO DAILY #30 Ref 0 CAP Oxygen tank (Oxygen tank) 1 Ea Tank 2 LITER SOTO.CANULA CONTINUOUS Oxygen Concentrator Portable Gaseous 2 L/min via Nasal Cannula Continuous For 99 months HYPOXEMIA PREVENTION #2 CYLINDER Ciprofloxacin (Cipro) 500 Mg Tab 500 MG PO Q12HR Infection #20 TAB Ferrous Sulfate (Ferrous Sulfate) 325 Mg Tab 325 MG PO BID Anemia #60 TAB Continued Medications: Naproxen (Naproxen) 375 Mg Tab 375 MG PO BID PRN PAIN SCALE 1 TO 5 OR COUGHING #60 Ref 0 TAB Christian Tobin DO Aug 13, 2016 14:54
--- NOTE | 2016-08-13 16:50 | HHI.PR ---
Subjective Remarks 81 YOWF with recurrent UTI, sepsis, pulm congestion had episode of AF with RVR Feels much betetr On RA Objective Vital Signs Vital Signs Date Time Temp Pulse Resp B/P Pulse Ox O2 Delivery O2 Flow Rate FiO2 08/13/16 12:42 97.6 91 16 118/62 92 08/13/16 11:56 Room Air 08/13/16 10:33 97 Nasal Cannula 21 08/13/16 09:58 97 Nasal Cannula 21 08/13/16 08:38 96.8 98 16 110/65 95 08/13/16 08:00 96 08/13/16 04:23 94 Nasal Cannula 2.00 08/13/16 04:00 96.7 96 18 133/66 94 08/13/16 00:00 97.9 94 18 115/56 94 08/12/16 21:30 Nasal Cannula 2.00 08/12/16 20:37 95 08/12/16 20:00 99.1 98 18 118/55 94 08/12/16 19:33 92 Nasal Cannula 3.00 08/12/16 17:05 3.00 I/O 08/12/16 08/12/16 08/12/16 08/13/16 08/13/16 08/13/16 07:00 15:00 23:00 07:00 15:00 23:00 Intake Total 240 ml 960 ml 480 ml Output Total 1050 ml 500 ml Balance 240 ml -90 ml -20 ml Intake Oral 240 ml 960 ml 480 ml Output Urine Total 1050 ml 500 ml # Voids 2 2 3 # Bowel Movements 2 1 Result Diagram: 08/13/16 0740 08/13/16 0740 Objective Remarks GENERAL: MBMN Wf,NAD SKIN: Warm and dry. HEAD: Normocephalic. EYES: No scleral icterus. No injection or drainage. NECK: Supple, trachea midline. No JVD or lymphadenopathy. CARDIOVASCULAR: Regular rate and rhythm without murmurs, gallops, or rubs. RESPIRATORY: Breath sounds equal bilaterally. No accessory muscle use. GASTROINTESTINAL: Abdomen soft, non-tender, nondistended. MUSCULOSKELETAL: No cyanosis, or edema. BACK: Nontender without obvious deformity. No CVA tenderness. A/P Assessment and Plan Pulm congestion improved AF With RVR Sepsis UTI PLAN: Abx per ID diurease Stable on RA DC Plans underway Aneja,Vishnu Dev MD Aug 13, 2016 16:50
== END 2016-08-13 18:19 | disposition home or self-care (01) | DRG 872 ==
LOC: NEPC 16:33 → NEDA 08-08 00:15 → N03A 08-08 02:49 → NEDA 08-08 02:49 → NEDH 08-08 05:55 → HIMW 08-08 17:25 → HOCB 08-11 18:34
PROVIDERS: ADMIT Hospitalist; ATTEND Hospitalist
DX: A41.51 Sepsis due to Escherichia coli [E. coli] (principal); N12 Tubulo-interstitial nephritis, not specified as acute or chronic; I48.91 Unspecified atrial fibrillation; D64.9 Anemia, unspecified; E83.39 Other disorders of phosphorus metabolism; J44.9 Chronic obstructive pulmonary disease, unspecified; E86.0 Dehydration; E87.6 Hypokalemia; S90.32XA Contusion of left foot, initial encounter; Z88.0 Allergy status to penicillin; Z85.3 Personal history of malignant neoplasm of breast; M17.11 Unilateral primary osteoarthritis, right knee; Z87.440 Personal history of urinary (tract) infections; K80.20 Calculus of gallbladder without cholecystitis without obstruction; R30.0 Dysuria; Z90.12 Acquired absence of left breast and nipple; N39.3 Stress incontinence (female) (male); F10.10 Alcohol abuse, uncomplicated; M81.0 Age-related osteoporosis without current pathological fracture; R00.0 Tachycardia, unspecified; R09.89 Other specified symptoms and signs involving the circulatory and respiratory systems; X58.XXXA Exposure to other specified factors, initial encounter
CPT/HCPCS: 71010; 71020; 71260; 74177; 76937; 80048; 80053; 81001; 82272; 82550; 82607; 82728; 82746; 83540; 83550; 83605; 83735; 84100; 84443; 84484; 85007; 85025; 85027; 85384; 85610; 85730; 87040; 87077; 87086; 87186; 87205; 87641; 87804; 93005; 93306; 94150; 94620; 94640; 94664; 96361; 96365; 96367; 96375; 96376; J0692; J0744; J1580; J1650; J1940; J2405; J3370; J3475; J3480; J7030; J7040; J7050; J7120; J7644; Q9967